=== PATIENT | male | born 1955 | race Caucasian/White ===

== ENCOUNTER 2018-09-12 04:53 | Inpatient (IN) | payer OTHER, MEDICARE ==
[2018-09-12] VITALS (9 sets, daily range): BP systolic 121–162; BP diastolic 64–95
[~2018-09-12] VITALS: Ht 165.1 cm; Wt 129.5 kg
--- NOTE | ~2018-09-12 | PR ---
[place], [place] PROGRESS NOTE NAME: ISSA OJEDA UNIT #: [id number] ROOM: 503 DOCTOR: CAIT TANG BIRTHDATE: [birth year] DOS: 09/13/2018 SUBJECTIVE: The patient was noted comfortable at this time, resting in bed with complaints of leg swelling; however, the patient states he is breathing and feeling overall better. OBJECTIVE: VITAL SIGNS: Normal temperature, respiratory rate 18, heart rate 98, blood pressure 155/87, pulse oxygen saturation on room air is 90%. HEENT: Shows head was atraumatic. Eyes nonicterus. NECK: Supple. CARDIOVASCULAR: S1, S2 is audible. LUNGS: Crackles and rhonchi are present. Slight wheezing was also present. There is general reduction in breath sounds noted bilaterally. ABDOMEN: Soft, moderate severe obesity. EXTREMITIES: Noted pitting edema to 2+. LABORATORY DATA: CBC this morning 09/13/2018, white blood cell count 12.8, hemoglobin 13.2, platelet count 376. CMP on 09/13/2018, sodium 134, BUN 24, creatinine 1.05, carbon dioxide 30, glucose 260. ASSESSMENT: 1. Chronic dependence on tobacco products, has been admitted for acute exacerbation of chronic obstructive pulmonary disease with acute congestive heart failure. 2. History of chronic heavy nicotine abuse. 3. Morbid obesity with strong suspicion of obstructive sleep apnea disorder. Current body habitus. 4. History of essential hypertension, hyperlipidemia, allergic rhinitis, others. PLAN OF TREATMENT: Solu-Medrol switched from 40 mg b.i.d. to daily. Continue current medical management. Other supportive therapy, plan of management care and treatment. Usual medical management. CAIT TANG DO [place], [place] PROGRESS NOTE NAME: ISSA OJEDA UNIT #: [id number] ROOM: 503 DOCTOR: CAIT TANG BIRTHDATE: [birth year] LESLIE MELENDEZ MD CM:PNTRANS [phone] [facility] 09/13/18 1414 interface
--- NOTE | ~2018-09-12 | PR ---
[place], [place] PROGRESS NOTE NAME: ISSA OJEDA [facility] #: [id number] UNIT #: [id number] ROOM: 503 DOCTOR: NORA ADAME MD,LESLIE BIRTHDATE: [birth year] DOS: 09/13/2018 PULMONARY ADDENDUM NOTE The patient lives independently, seen and examined, ilsq-gr-[id number] encounter, history was confirmed. Physical examination was performed. Labs were reviewed. The note done by the medical staff assistant, it was approved. The patient was sitting this morning on the chair, reported reduction in symptoms of shortness of breath, coughing, or wheezing. Denies symptoms of chest pain. There was no sputum expectoration or symptoms of fever, chills or hemoptysis. The edema of the lower extremity, still remains persistent. OBJECTIVE: VITAL SIGNS: Normal temperature, respiratory rate 18, heart rate 98, blood pressure 155/87. Pulse oxygen saturation recorded on room air 93% saturation. HEENT: Head was atraumatic. Eyes nonicterus. NECK: Supple and obese. CARDIOVASCULAR: S1, S2 audible. LUNGS: General reduction in breath sounds bilaterally, decreased air entry. ABDOMEN: Soft, nontender, bowel sounds present. EXTREMITIES: The patient was still noted with edema, which is at least 2+ at this time with chronic changes, some rash. No open areas. MUSCULOSKELETAL: Without acute deformities. CENTRAL NERVOUS SYSTEM: The patient's cranial nerves 2-12 intact. No focal deficits. SKIN: No other lesions or rash except reported on this lower extremities. REVIEW OF SYSTEMS: The patient denies symptoms of abdominal pain, nausea, vomiting, diarrhea, abdominal pain, hematemesis, melena, or hematuria. Denies symptoms of headache or diplopia. Denies any symptoms of nausea or vomiting. The remaining systems were reviewed. They were noted all negative. Influenza A and B, nasal washing antigens that was completed yesterday was negative. Ultrasound of bilateral lower extremity was done yesterday does not show any dense of deep venous thrombosis. Echocardiogram patient shows 55-60% ejection fraction without significant valvular abnormality. Right ventricle function reported as normal by the Cardiology Services as well. CBC this morning, WBC count 12.0, hemoglobin 13.2, hematocrit 41.7 with a platelet count of normal 376,000. CMP this morning, normal BUN and creatinine. Glucose was elevated at 260. IMPRESSION: 1. The patient has been currently treated in this hospital for acute exacerbation of COPD, acute tracheobronchitis with a watermelon inspector heavy nicotine dependence. 2. Edema of lower extremity, congestive heart failure, possibility of diastolic dysfunction. 3. Chronic obesity. 4. Strong suspicion of obstructive sleep apnea disorder. 5. History of essential hypertension, hyperlipidemia and others. [place], [place] PROGRESS NOTE NAME: ISSA OJEDA UNIT #: [id number] ROOM: [facility] DOCTOR: NORA ADAME MD,LESLIE BIRTHDATE: [birth year] PLAN OF MANAGEMENT: Decrease the Solu-Medrol dose 40 mg daily, close monitor respiratory symptom. Continue bronchodilators and oxygen supplementation. Other supportive therapy, plan of management and care. Continue DVT prophylaxis. Diuretic therapy to help improve the edema of lower extremity. No changes in the antibiotics. Further change in treatment will be ordered based on the progression of the illness. LESLIE MELENDEZ MD CM:PNTRANS [phone] LESLIE ADAME MD 09/13/18 2345 interface
--- NOTE | ~2018-09-12 | PR ---
[place], [place] PROGRESS NOTE [id number] UN[facility] #: [id number] ROOM: 503 DOCTOR: LESLIE CRUZ MD BIRTHDATE: [birth year] DOS: 09/15/2018 SUBJECTIVE: The patient has been seen and examined, [id number]-di-[id number] encounter, history was confirmed. Physical examination performed. Labs reviewed. The assessment and management of the patient today visit were personally completed. The note done by the medical billing associate, was approved. The patient has been sitting on the chair this morning of assessment. Continued to show reduction in symptoms of shortness of breath. The coughing was also resolving. There were no symptoms of chest pain, edema of the lower extremities was noted unchanged. He was continued on intravenous diuretic therapy. PHYSICAL EXAMINATION: VITAL SIGNS: For the patient which has been recorded shows a normal temperature, respiratory rate of 20, heart rate of 88, blood pressure 134/68. Pulse oxygen saturation on 3 liters cannula was recorded as 93% saturation. HEAD, EYES, EARS, NOSE, AND THROAT: Examination shows head was atraumatic. Eyes nonicterus. NECK: Supple. CARDIOVASCULAR SYSTEM: S1, S2 is audible. LUNGS: There was no wheezing or crackles. ABDOMEN: Soft, nontender. EXTREMITIES: Still shows edema. LABORATORY DATA: CMP that was done on 09/15/2018, BUN 31, creatinine was normal, glucose 273. CBC that was done on 09/15/2018, WBC 11.9, hemoglobin 12.9. IMPRESSION: Resolving acute congestive heart failure as well as improvement in acute COPD exacerbation was also noted with acute respiratory failure. PLAN OF MANAGEMENT: No changes in the plan of management at the present time. Continuation of current therapy without any changes. Supportive therapy and plan of management, care plan and treatments. [place], [place] PROGRESS NOTE NAME: ISSA OJEDA UNIT #: [id number] ROOM: 503 DOCTOR: LESLIE CRUZ MD BIRTHDATE: [birth year] LESLIE MELENDEZ MD CM:PNTRANS [id number] LESLIE ADAME MD 09/23/18 1027 interface
--- NOTE | ~2018-09-12 | PR ---
[place], [place] PROGRESS NOTE NAME: ISSA OJEDA UNIT #: [id number] ROOM: 503 DOCTOR: CAIT TANG BIRTHDATE: [birth year] DOS: 09/14/2018 PULMONARY PROGRESS NOTE SUBJECTIVE: The patient was noted comfortable at this time, sitting in his chair. The patient states he is breathing well with decreased shortness of breath, coughing and wheezing and at this time feels like he is ready to go home. The patient denies symptoms of chest pain. There is still slight swelling or edema of the lower extremity. OBJECTIVE: VITAL SIGNS: Normal temperature, respiration rate 20, pulse 79, blood pressure 129/80, pulse oxygen saturation on room air is 93%. HEENT: Shows head was atraumatic. Eyes nonicterus. NECK: Supple and obese. CARDIOVASCULAR: S1, S2 audible. LUNGS: General reduction of breath sounds bilaterally. Decreased wheezing heard. ABDOMEN: Soft, nontender. Bowel sounds present. EXTREMITIES: The patient still noted with edema, persistent 1-2+. SKIN: No other lesions or rash reported. IMPRESSION: 1. Chronic dependence on tobacco products, admitted for acute exacerbation of chronic obstructive pulmonary disease with acute congestive heart failure. 2. History of chronic heavy nicotine abuse. PLAN OF TREATMENT: The patient is okay to discharge from a pulmonary standpoint. We will check the patient for obstructive sleep apnea outpatient. The patient can be discharged on steroid taper and antibiotics of the hospitalist choosing. CAIT TANG DO [place], [place] PROGRESS NOTE NAME: ISSA OJEDA UNIT #: [id number] ROOM: 503 DOCTOR: CAIT TANG BIRTHDATE: [birth year] LESLIE MELENDEZ MD CM:PNTRANS [id number] CAIT TANG 09/14/18 1517 interface
--- NOTE | ~2018-09-12 | PR ---
[place], [place] PROGRESS NOTE NAME: ISSA OJEDA UNIT #: [id number] ROOM: 503 DOCTOR: CAIT TANG BIRTHDATE: [birth year] DOS: 09/15/2018 PULMONARY PROGRESS NOTE SUBJECTIVE: The patient was noted sitting comfortably in his chair. The patient had no complaints at that time. States he is breathing well and has had improvement in his respiratory symptoms, shortness of breath and edema of his lower extremities was also resolving. PHYSICAL EXAMINATION: VITAL SIGNS: Normal temperature, respiratory rate 22, heart rate 100, blood pressure 122/69, pulse oxygen saturation on 3 liters nasal cannula 93% saturation. HEENT: Head is atraumatic. Eyes, nonicterus. NECK: Supple. CARDIOVASCULAR: S1, S2 is audible. LUNGS: Noted with [id number]-vqsczscl decreased breath sounds throughout. Slight to minimal crackles heard. No wheezing. ABDOMEN: Soft and obese. EXTREMITIES: Shows resolving edema. ASSESSMENT: The patient noted with resolving acute exacerbation of chronic obstructive pulmonary disease and improving acute congestive heart failure, possibly diastolic dysfunction, history of chronic nicotine dependence. PLAN OF TREATMENT: From a pulmonary standpoint, the patient is able to be discharged with a tapering prednisone and antibiotics as well, bronchodilators and has been counseled about tobacco cessation. Outpatient assessment for sleep apnea will be established by the patient after his discharge. CAIT TANG DO [place], [place] PROGRESS NOTE NAME: ISSA OJEDA UNIT #: [id number] ROOM: 503 DOCTOR: CAIT TANG BIRTHDATE: [birth year] LESLIE MELENDEZ MD CM:PNTRANS [phone] CAIT TANG 09/15/18 1119 interface
--- NOTE | ~2018-09-12 | CON ---
[place], [place] REPORT OF CONSULTATION NAME: ISSA OJEDA [facility] #: [id number] UNIT #: [id number] ROOM: 503 DOCTOR: LESLIE CRUZ MD BIRTHDATE: [birth year] DOS: 09/12/2018 PULMONARY CONSULTATION, EVALUATION AND MANAGEMENT CONSULTATION REQUESTED BY: Hospitalist service. REASON FOR CONSULTATION: For assessment of COPD. HISTORY OF PRESENT ILLNESS: This is a 63-year-old white male with history of long-term heavy tobacco use, smokes up to 3 packs of cigarettes per day. The patient presented to the hospital on 09/12/2018 in the morning. The patient reported symptoms of having increased shortness of breath associated with symptoms of coughing and sputum expectoration for the past 3-4 weeks. The symptoms have been noted progressively worsening and not resolving. Shortness of breath was noted with significant progression. He was also noted with symptoms of chest tightness and wheezing as well. The patient has been known with past history of COPD and smoking cigarettes heavily. He denies any symptoms of hemoptysis or angina pain. He was also reporting symptoms of progressive edema of the lower extremities as well in the home settings. REVIEW OF SYSTEMS: CONSTITUTIONAL SYMPTOMS: Fatigue and tiredness reported. No fever or chills. EYES: Denies any burning, redness, or tenderness. EARS, NOSE, THROAT SYMPTOMS: Denies sore throat, hoarseness, otalgia, postnasal drainage, or epistaxis. CARDIOVASCULAR SYSTEM: Denies palpitation or anginal pain. Noted progressive edema of the lower extremities with some rash. GASTROINTESTINAL SYMPTOMS: Denies dysphagia, nausea, vomiting, diarrhea, abdominal pain, hematemesis, melena, or hematochezia. Denies any abnormal weight loss. Denies any symptoms of dysphagia. History of chronic severe obesity, known. GENITOURINARY SYMPTOMS: No dysuria, suprapubic pain, hematuria or flank pain. MUSCULOSKELETAL SYMPTOMS: No acute joint pain, redness, or tenderness. SKIN: Denies any lesions, rashes except some redness of the lower extremities. CENTRAL NERVOUS SYSTEM: No dizziness, headache, diplopia, or syncopal episode. Remaining systems were reviewed. They were noted all negative. PAST MEDICAL HISTORY: 1. The patient known with history of COPD. 2. Chronic dependency on the tobacco products. 3. Chronic moderate severe obesity. 4. Type 2 diabetes mellitus. 5. Hyperlipidemia. 6. Essential hypertension. 7. Vitamin D deficiency. SOCIAL HISTORY: The patient is and lives at home, noted tobacco use since teenager, 3 packs of cigarettes per day, stating that he buys cheaper brand of cigarettes to smoke. Denies history of alcohol use or any illicit drug [place], [place] REPORT OF CONSULTATION NAME: ISSA OJEDA UNIT #: [id number] ROOM: [facility] DOCTOR: LESLIE CRUZ MD BIRTHDATE: [birth year] use. He does have 2 children. 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 FAMILY HISTORY: Unknown. HOME MEDICATIONS: Listed as use of Ventolin HFA, atorvastatin, Coreg, vitamin D, vitamin B12, Zetia, Advair, gemfibrozil, ibuprofen, loratadine, metformin, omeprazole, and Incruse Ellipta. DRUG ALLERGIES: REPORTED ALLERGY TO THE NARCOTICS. THE PATIENT DOES HAVE HISTORY OF NARCOTIC DEPENDENCE PREVIOUSLY. PHYSICAL EXAMINATION: GENERAL: This is a 63-year-old white male, currently sitting on side of the bed without any acute distress. His is also present in the room with the patient assisted with the history. Height of 5 feet 5 inches, weight of 285 pounds, BMI 47.4 consistent with morbid obesity. VITAL SIGNS: Normal temperature, respiratory rate ranged between 17-22, heart rate 92-101, blood pressure 132/78-162/80. Pulse oxygen saturation on 2 liters nasal cannula 92% saturation on room air noted 92% on admission as well. Intake and output so far has not been documented. HEENT: Head was atraumatic. Eyes nonicterus. NECK: Supple. CARDIOVASCULAR: S1, S2 audible. LUNGS: General reduction in the breath sounds was noted bilaterally. Crackles were noted diffusely in the lungs. Expiratory wheezing was present. ABDOMEN: Noted moderate severe obesity. Bowel sounds present, nontender. EXTREMITIES: Noted 2-3+ pitting edema in lower extremity, some redness of the lower extremity. There were no open areas. CENTRAL NERVOUS SYSTEM: Cranial nerves 2-12 intact. MUSCULOSKELETAL: Without any gross deformities. LABORATORY DATA: CBC this morning; WBC count 12.2, hemoglobin 13.1, platelet count was normal. The lactic acid noted 1.0 this morning of assessment. PT/PTT normal this morning. CMP, normal BUN and creatinine. Influenza A and B, nasal washing antigens were noted as negative. Chest x-ray that was done one view in the Emergency reviewed from the PACS. Images with increased pulmonary venous congestion marking were noted on the current chest x-ray. CT scan of the chest, which was done without contrast was reviewed, shows small plate-like atelectasis in the lower lung without any evidence of pulmonary edema, congestive heart failure findings and/or abnormal lymphadenopathy. IMPRESSION: 1. Chronic dependence on the tobacco products who has been admitted to the hospital at this time with findings of acute exacerbation of chronic obstructive pulmonary disease with acute congestive heart failure, possibility of cor pulmonale would be considered. 2. History of chronic heavy nicotine abuse as well. 3. The patient with morbid obesity with strong suspicion of obstructive sleep [place], [place] REPORT OF CONSULTATION NAME: ISSA OJEDA UNIT #: [id number] ROOM: [facility] DOCTOR: LESLIE CRUZ MD BIRTHDATE: [birth year] apnea disorder, current body habitus. 4. History of essential hypertension, hyperlipidemia, allergic rhinitis and others. PLAN OF TREATMENT: The patient has been started on Solu-Medrol 40 mg b.i.d. that will be continued. Diuretic therapy for the patient to be done. Cardiology assessment or minimum of echocardiogram assessment to assess the left and the right ventricular functions. Tobacco cessation and counseling was done at the bedside. Continue current antibiotic for community-acquired bronchitis. Usual care. Further treatment changes will be recommended based on progression of the illness if the edema remains persistent in spite of good diuretics. Consider obtaining ultrasound of lower extremity to exclude any underlying deep venous thrombosis. Supportive therapy, other plan of management and care plan. Oxygen supplementation in case of hypoxia to maintain pulse oxygen saturation 92% or greater. Usual care, other supportive plan of therapy and care plan and treatment. Other treatment plan of management to be made for this patient based on the progression of the illness. Thank you for allowing me to participate in the care of this patient. LESLIE MELENDEZ MD CM:CONSTR:REPORT OF CONSULTATION 1443 09/13/18 0256 interface
--- NOTE | ~2018-09-12 | EKG ---
[place], [place] ELECTROCARDIOGRAM REPORT NAME: ISSA OJEDA UNIT #: [id number] ROOM: 503 DOCTOR: NEGIN DRAFT REPORT BIRTHDATE: [birth year] [facility] Test Date: 2018-09-12 Test Time: 05:23:04 Pat Name: ISSA OJEDA Department: Room: 503 Gender: M Composite Bond Technician: : 1955 Requested By: VIRGINIA FRANKEL Order Number: [id number] Reading MD: Chencho Vanegas MD Measurements Intervals [place] Rate: 91 P: 42 WV: 184 QRS: 41 QRSD: 87 T: 44 QT: 360 QTc: 443 Interpretive Statements Sinus rhythm Low voltage, precordial leads Borderline T abnormalities, anterior leads Electronically Signed On 09-13-2018 11:10:03 PST by Chencho Vanegas MD CM:EKGRPT:ELECTROCARDIOGRAM REPORT 0523 1110 VIRGINIA FITZGERALD DRAFT REPORT VIRGINIA FRANKEL DO
--- NOTE | ~2018-09-12 | PR ---
[place], [place] PROGRESS NOTE [id number] #: [id number] ROOM: 503 DOCTOR: LESLIE CRUZ MD BIRTHDATE: [birth year] DOS: 09/14/2018 PULMONARY PROGRESS NOTE SUBJECTIVE: The patient was independently seen and examined with qzrz-[id number]-gqcb encounter, history was confirmed. Physical examination was performed. Laboratory reviewed. Assessment and management of today's visit personally completed. Note done by the medical equipment repairer, was approved. The patient continued to show reduction and improvement in the respiratory symptoms, shortness of breath, edema of lower extremities was also resolving. The patient has been getting intravenous Lasix as well. Denies symptoms of chest pain, fever or chills. Oxygen supplementation was continued. PHYSICAL EXAMINATION: VITAL SIGNS: Normal temperature, respiratory rate 20, heart rate 79, pulse 129/80. The pulse oxygen saturation of the patient recorded as 98% saturation on 3 L nasal cannula. HEENT: Examination shows head was atraumatic. Eyes nonicterus. NECK: Supple. CARDIOVASCULAR: S1, S2 is audible. LUNGS: Noted with mild to moderate decreased breath sounds without wheeze or crackles today. ABDOMEN: Soft and obese. EXTREMITIES: Shows resolving edema; however, the resolution noted incomplete. IMPRESSION: The patient with improving acute congestive heart failure, possibly diastolic dysfunction, resolving acute exacerbation of chronic obstructive pulmonary disease, history of chronic nicotine dependence. PLAN OF TREATMENT: From the pulmonary standpoint discharge planning could be started for the patient upon discharge tapering prednisone, antibiotics as well. Bronchodilators, counseling about tobacco cessation. Outpatient assessment for sleep apnea, COPD, needs to be established by the patient post-discharge. [place], [place] PROGRESS NOTE NAME: ISSA OJEDA UNIT #: [id number] ROOM: 503 DOCTOR: LESLIE CRUZ MD BIRTHDATE: [birth year] LESLIE MELENDEZ MD CM:PNTRANS 20 [phone] LESLIE ADAME MD 09/14/182300 interface
[~2018-09-12 04:53] MED LIST: ATORVASTATIN CA20 MG PO; B12,B-12,B 12500 MC1 PO; CIPRO500 MG PO; CIPROFLOXACIN500 MG PO; COREG3.125 MG PO; FEROSUL325 MG PO; FLAGYL500 MG PO; GLUCOPHAGE500 M1 PO; LEVAQUIN500 M2 PO; LIPITOR80 MG PO; LISINOPRIL2.5 MG; LISINOPRIL2.5 MG PO; LOPID600 M1 PO; METFORMIN500 MG PO; MOTRIN 600 MG E4 TAB PO; MOTRIN800 MG PO; NICODERM14 MG/24 H TD; NOVOLIN 70/30 701 EA SC; NOVOLIN 70100 UNIT/1 SQ; PHENERGAN25 M1 PO; SYMBICORT1 AE1 INH; ULTRAM50 MG PO; VENTOLIN H0.09 MG/AC INH; VICODIN ES 7501 TAB PO; ZETIA10 MG PO
[2018-09-12 05:29] LABS: BASO # 0.1 10*3/uL (0.0-0.1); BASO % 0.7 % (0.0-1.0); EOS # 0.2 10*3/uL (0.0-0.4); EOS % 1.2 % (1.0-4.0); HEMATOCRIT 40.3 % (42.0-52.0); HEMOGLOBIN 13.1 g/dl (14.0-18.0); LYMPH # 1.5 10*3/uL (1.3-4.4); LYMPH % 11.9 % (27.0-41.0); MEAN CORPUSCULAR HGB 32.8 pg (27.0-31.0); MEAN CORPUSCULAR HGB CONC 32.5 g/dl (33.0-37.0); MEAN PLATELET VOLUME 9.9 fl (9.6-12.3); MONO # 0.7 10*3/uL (0.1-1.0); MONO % 5.3 % (3.0-9.0); NEUT # 9.8 10*3/uL (2.3-7.9); NEUT % 80.3 % (47.0-73.0); PLATELET COUNT AUTOMATED 330 10*3/uL (130-400); RED BLOOD COUNT 3.99 10*6/uL (4.50-5.90); RED CELL DISTRI WIDTH 14.3 % (0-14.5); WHITE BLOOD COUNT 12.2 10*3/uL (4.8-10.8)
[2018-09-12 05:37] LABS: ACT PARTIAL THROMBO TIME 27.6 SECONDS (20.8-31.5); INTERNATIONAL NORM RATIO 0.9 (2.0-3.5)
[2018-09-12 05:46] LABS: ALBUMIN 4.1 gm/dl (3.1-4.5); ALKALINE PHOSPHATASE 132 U/L (45-117); BUN 18 mg/dl (7-24); CHLORIDE 104 mmol/L (98-107); CREATININE 0.95 mg/dL (0.70-1.30); POTASSIUM 4.1 mmol/L (3.5-5.1); SGOT/AST 35 IU/L (3-35); SGPT/ALT 29 U/L (12-78); SODIUM 140 mmol/L (136-145)
[2018-09-12 05:48] LABS: TROPONIN I < 0.015 ng/ml (<0.045)
[2018-09-12] MEDS ORDERED: CLEARATADINE10 MG PO (05:53)
[2018-09-12] MEDS ORDERED: OMEPRAZOLE40 MG PO (05:53)
[2018-09-12] MEDS ORDERED: ADV 500/50 INH (05:54)
[2018-09-12] MEDS ORDERED: VITAMIN D31000 UNI1 PO (05:55)
[2018-09-12] MEDS ORDERED: INCRUSE ELLI62.5 MCG INH (05:55)
[2018-09-12] MEDS ORDERED: B12,B-12,B 12500 MC1 PO (05:56)
[2018-09-12] MEDS ORDERED: CARVEDILOL3.125 MG PO (05:56)
[2018-09-12] MEDS ORDERED: NOVOLIN 70100 UNIT/1 SQ (05:58)
[2018-09-13] VITALS: BP 155/87
[2018-09-13 06:42] LABS: BASO % 0.2 % (0.0-1.0); HEMATOCRIT 41.7 % (42.0-52.0); HEMOGLOBIN 13.2 g/dl (14.0-18.0); LYMPH % 7.8 % (27.0-41.0); MEAN CELL VOLUME 102.2 fl (80.0-94.0); MEAN CORPUSCULAR HGB 32.4 pg (27.0-31.0); MEAN CORPUSCULAR HGB CONC 31.7 g/dl (33.0-37.0); MEAN PLATELET VOLUME 10.3 fl (9.6-12.3); MONO # 0.4 10*3/uL (0.1-1.0); MONO % 3.4 % (3.0-9.0); NEUT # 11.3 10*3/uL (2.3-7.9); NEUT % 88.2 % (47.0-73.0); PLATELET COUNT AUTOMATED 376 10*3/uL (130-400); RED BLOOD COUNT 4.08 10*6/uL (4.50-5.90); RED CELL DISTRI WIDTH 14.2 % (0-14.5); WHITE BLOOD COUNT 12.8 10*3/uL (4.8-10.8)
[2018-09-13 06:56] LABS: ALBUMIN 4.4 gm/dl (3.1-4.5); BUN 24 mg/dl (7-24); CHLORIDE 95 mmol/L (98-107); CHOLESTEROL 98 mg/dL (<200); CREATININE 1.05 mg/dL (0.70-1.30); PHOSPHOROUS 3.5 mg/dL (2.5-4.9); POTASSIUM 4.2 mmol/L (3.5-5.1); SGOT/AST 33 IU/L (3-35); SGPT/ALT 32 U/L (12-78); SODIUM 134 mmol/L (136-145); TOTAL PROTEIN 8.4 gm/dL (6.4-8.2); TRIGLYCERIDES 125 mg/dl (<150); VLDL CHOLESTEROL 25 mg/dL (6-40)
[2018-09-13 07:02] LABS: ALKALINE PHOSPHATASE 133 U/L (45-117); FREE T4 0.75 ng/dl (0.76-1.46); HDL CHOLESTEROL 45 mg/dl (40-60); LDL CHOLESTEROL 28 mg/dL (9-159)
[2018-09-13 08:41] LABS: VITAMIN D, 25-HYDROXY 18.7 ng/mL (30-100)
[2018-09-13 12:00] VITALS: BP 121/56
[2018-09-13 16:00] VITALS: BP 136/68
[2018-09-13 20:00] VITALS: BP 111/65
[2018-09-14] VITALS: BP 134/73
[2018-09-14 06:17] LABS: BASO % 0.3 % (0.0-1.0); EOS % 0.3 % (1.0-4.0); HEMATOCRIT 40.2 % (42.0-52.0); LYMPH # 2.3 10*3/uL (1.3-4.4); LYMPH % 20.6 % (27.0-41.0); MEAN CORPUSCULAR HGB CONC 32.3 g/dl (33.0-37.0); MEAN PLATELET VOLUME 10.1 fl (9.6-12.3); MONO # 0.7 10*3/uL (0.1-1.0); MONO % 6.3 % (3.0-9.0); NEUT # 7.9 10*3/uL (2.3-7.9); NEUT % 72.1 % (47.0-73.0); PLATELET COUNT AUTOMATED 311 10*3/uL (130-400); RED BLOOD COUNT 3.94 10*6/uL (4.50-5.90); RED CELL DISTRI WIDTH 14.4 % (0-14.5)
[2018-09-14 06:35] LABS: ALKALINE PHOSPHATASE 117 U/L (45-117); CHLORIDE 96 mmol/L (98-107); CREATININE 1.01 mg/dL (0.70-1.30); POTASSIUM 4.1 mmol/L (3.5-5.1); SGOT/AST 41 IU/L (3-35); SGPT/ALT 32 U/L (12-78); SODIUM 135 mmol/L (136-145); TOTAL PROTEIN 7.8 gm/dL (6.4-8.2)
[2018-09-14 07:21] LABS: BUN 35 mg/dl (7-24)
[2018-09-14 08:00] VITALS: BP 129/80
[2018-09-14 12:00] VITALS: BP 125/72
[2018-09-14 16:00] VITALS: BP 120/70
[2018-09-14 20:00] VITALS: BP 124/59
[2018-09-15] VITALS: BP 122/69
[2018-09-15 06:32] LABS: BASO % 0.2 % (0.0-1.0); EOS # 0.1 10*3/uL (0.0-0.4); EOS % 0.4 % (1.0-4.0); HEMATOCRIT 39.3 % (42.0-52.0); HEMOGLOBIN 12.9 g/dl (14.0-18.0); LYMPH # 2.1 10*3/uL (1.3-4.4); LYMPH % 17.9 % (27.0-41.0); MEAN CELL VOLUME 99.7 fl (80.0-94.0); MEAN CORPUSCULAR HGB 32.7 pg (27.0-31.0); MEAN CORPUSCULAR HGB CONC 32.8 g/dl (33.0-37.0); MEAN PLATELET VOLUME 10.6 fl (9.6-12.3); MONO # 0.8 10*3/uL (0.1-1.0); MONO % 6.7 % (3.0-9.0); NEUT # 8.8 10*3/uL (2.3-7.9); NEUT % 74.4 % (47.0-73.0); PLATELET COUNT AUTOMATED 323 10*3/uL (130-400); RED BLOOD COUNT 3.94 10*6/uL (4.50-5.90); RED CELL DISTRI WIDTH 14.1 % (0-14.5); WHITE BLOOD COUNT 11.9 10*3/uL (4.8-10.8)
[2018-09-15 06:40] LABS: ALBUMIN 3.9 gm/dl (3.1-4.5); ALKALINE PHOSPHATASE 121 U/L (45-117); BUN 31 mg/dl (7-24); CHLORIDE 94 mmol/L (98-107); CREATININE 0.99 mg/dL (0.70-1.30); POTASSIUM 3.8 mmol/L (3.5-5.1); SGOT/AST 32 IU/L (3-35); SGPT/ALT 35 U/L (12-78); SODIUM 133 mmol/L (136-145); TOTAL PROTEIN 7.5 gm/dL (6.4-8.2)
[2018-09-15] MEDS ORDERED: LASIX40 MG PO (10:43)
[2018-09-15] MEDS ORDERED: NICODERM T (10:43)
[2018-09-15] MEDS ORDERED: PREDNISONE10 MG PO (10:43)
[2018-09-15] MEDS ORDERED: AVPAK AZITHROM250 M1 PO (10:43)
[2018-09-15] MEDS ORDERED: K-TAB10 MEQ PO (10:43)
[2018-09-15 12:00] VITALS: BP 134/68
== END 2018-09-15 13:30 | disposition home or self-care (01) | DRG 871 ==
LOC: ED 04:53 → EDHOLD 05:55 → 5E 05:55
PROVIDERS: Family Medicine; Internal Medicine; Student in an Organized Health Care Education/Training Program
DX: A41.9 Sepsis, unspecified organism (principal); G93.41 Metabolic encephalopathy; J18.9 Pneumonia, unspecified organism; J96.00 Acute respiratory failure, unspecified whether with hypoxia or hypercapnia; J44.0 Chronic obstructive pulmonary disease with (acute) lower respiratory infection; J44.1 Chronic obstructive pulmonary disease with (acute) exacerbation; Z68.42 Body mass index [BMI] 45.0-49.9, adult; I11.0 Hypertensive heart disease with heart failure; I50.9 Heart failure, unspecified; D53.9 Nutritional anemia, unspecified; E78.5 Hyperlipidemia, unspecified; I08.1 Rheumatic disorders of both mitral and tricuspid valves; E55.9 Vitamin D deficiency, unspecified; G47.33 Obstructive sleep apnea (adult) (pediatric); J20.9 Acute bronchitis, unspecified; F17.210 Nicotine dependence, cigarettes, uncomplicated; R60.9 Edema, unspecified; E11.649 Type 2 diabetes mellitus with hypoglycemia without coma; E66.01 Morbid (severe) obesity due to excess calories; Z71.6 Tobacco abuse counseling; Z79.4 Long term (current) use of insulin; Z88.5 Allergy status to narcotic agent; Z89.422 Acquired absence of other left toe(s); Z79.899 Other long term (current) drug therapy

== ENCOUNTER 2018-10-13 12:07 | Inpatient (IN) | payer OTHER, MEDICARE ==
[2018-10-13] VITALS (7 sets, daily range): BP systolic 135–140; BP diastolic 64–80
[~2018-10-13] VITALS: Ht 165.1 cm; Wt 127.5 kg
[~2018-10-13 12:07] MED LIST changes: +ADV 500/50 INH; +AVPAK AZITHROM250 M1 PO; +CARVEDILOL3.125 MG PO; +CLEARATADINE10 MG PO; +INCRUSE ELLI62.5 MCG INH; +K-TAB10 MEQ PO; +LASIX40 MG PO; +NICODERM T; +OMEPRAZOLE40 MG PO; +PREDNISONE10 MG PO; +VITAMIN D31000 UNI1 PO
[2018-10-13 12:43] LABS: BASO # 0.1 10*3/uL (0.0-0.1); BASO % 0.5 % (0.0-1.0); EOS # 0.1 10*3/uL (0.0-0.4); EOS % 1.2 % (1.0-4.0); HEMATOCRIT 37.9 % (42.0-52.0); HEMOGLOBIN 12.4 g/dl (14.0-18.0); LYMPH # 1.4 10*3/uL (1.3-4.4); LYMPH % 14.2 % (27.0-41.0); MEAN CELL VOLUME 101.6 fl (80.0-94.0); MEAN CORPUSCULAR HGB 33.2 pg (27.0-31.0); MEAN CORPUSCULAR HGB CONC 32.7 g/dl (33.0-37.0); MEAN PLATELET VOLUME 9.7 fl (9.6-12.3); MONO # 0.6 10*3/uL (0.1-1.0); MONO % 5.6 % (3.0-9.0); NEUT # 7.8 10*3/uL (2.3-7.9); NEUT % 78.2 % (47.0-73.0); PLATELET COUNT AUTOMATED 353 10*3/uL (130-400); RED BLOOD COUNT 3.73 10*6/uL (4.50-5.90); RED CELL DISTRI WIDTH 14.6 % (0-14.5)
[2018-10-13 12:51] LABS: INTERNATIONAL NORM RATIO 0.9 (2.0-3.5)
[2018-10-13 12:58] LABS: ALBUMIN 3.5 gm/dl (3.1-4.5); ALKALINE PHOSPHATASE 127 U/L (45-117); BUN 16 mg/dl (7-24); CHLORIDE 103 mmol/L (98-107); CREATININE 0.91 mg/dL (0.70-1.30); POTASSIUM 4.2 mmol/L (3.5-5.1); SGOT/AST 27 IU/L (3-35); SGPT/ALT 26 U/L (12-78); SODIUM 138 mmol/L (136-145); TOTAL PROTEIN 7.4 gm/dL (6.4-8.2)
[2018-10-13 14:41] LABS: BILIRUBIN NEGATIVE (NEGATIVE); BLOOD NEGATIVE (NEGATIVE); CLARITY CLEAR (CLEAR); COLOR YELLOW (YELLOW); GLUCOSE NEGATIVE (NEGATIVE); KETONE NEGATIVE (NEGATIVE); LEUKO ESTERASE NEGATIVE (NEGATIVE); NITRITE NEGATIVE (NEGATIVE); UROBILINOGEN 0.2 E.U./dl (0.2-1.0)
[2018-10-13 14:50] LABS: URINE AMPHETAMINES < 1000 (1000ng/ml); URINE BARBITURATES < 200 (200ng/ml); URINE BENZODIAZEPINES < 200 (200ng/ml); URINE CANNABINOIDS (THC) < 50 (50ng/ml); URINE COCAINE < 300 (300ng/ml); URINE METHADONE < 300 (300ng/ml); URINE OPIATES < 300 (300ng/ml)
[2018-10-13 14:51] LABS: URINE PHENCYCLIDINE < 25 (25ng/ml)
--- NOTE | 2018-10-13 15:45 | NUR ---
PT RETURNS TO ED FROM WAITING AREA WITH STATES I WILL BE ADMITTED BUT FOR ONLY 1 NIGHT. MELLO HOUSING ASSISTANT NOTIFIED.
[2018-10-13 17:27] LABS: ABG BASE EXCESS 0.7 mmol/L (-2.0-2.0); ABG O2 SATURATION 92.4 % (95-97); ARTERIAL BLOOD GAS PCO2 46.2 mmHg (35-45); ARTERIAL BLOOD GAS PH 7.366 (7.35-7.45); ARTERIAL BLOOD GAS PO2 60.5 mmHg (80-90)
--- NOTE | 2018-10-13 17:45 | NUR ---
Time: 1744 A 63 year old MALE admitted to 5E under services of JOSEPH GRAFF DO, Pt. arrived via stretcher from ER. Chief complaint: DYSPNEA, VISUAL HALLUCINATIONS EARLIER TODAY, LOW OXYGEN SATURATION AND MOIST NONPRODUCTIVE COUGH. SARY BLANCHARD
--- NOTE | 2018-10-13 17:50 | NUR ---
MED REC UPDATED/CORRECTED USING INFORMATION FROM PATIENT'S DISCHARGE MEDS LIST FROM 09/15; PATIENT DENIED ANY CHANGES TO THIS LIST.
--- NOTE | 2018-10-13 20:00 | NUR ---
PT RESTING UP IN CHAIR. NO ACUTE DISTRESS NOTED AT THIS TIME. RESPS EASY AND REG. NO COMPLAINTS NOTED CURRENTLY.
--- NOTE | 2018-10-13 20:12 | NUR ---
PT C/O BODY ACHES 04/26. PRN MEDS GIVEN. WILL MONITOR FOR EFFECTIVENESS.
[2018-10-14] VITALS: BP 139/88
[2018-10-14 00:01] VITALS: BP 118/42
--- NOTE | 2018-10-14 05:49 | NUR ---
PT C/O BACK PAIN 03/27. PRN MEDS GIVEN. WILL MONITOR FOR EFFECTIVENESS.
[2018-10-14 07:24] LABS: BASO % 0.1 % (0.0-1.0); HEMATOCRIT 38.9 % (42.0-52.0); HEMOGLOBIN 12.2 g/dl (14.0-18.0); LYMPH # 1.1 10*3/uL (1.3-4.4); LYMPH % 11.2 % (27.0-41.0); MEAN CELL VOLUME 102.4 fl (80.0-94.0); MEAN CORPUSCULAR HGB 32.1 pg (27.0-31.0); MEAN CORPUSCULAR HGB CONC 31.4 g/dl (33.0-37.0); MEAN PLATELET VOLUME 10.2 fl (9.6-12.3); MONO # 0.4 10*3/uL (0.1-1.0); MONO % 4.1 % (3.0-9.0); NEUT # 8.4 10*3/uL (2.3-7.9); NEUT % 84.3 % (47.0-73.0); PLATELET COUNT AUTOMATED 384 10*3/uL (130-400); RED CELL DISTRI WIDTH 14.6 % (0-14.5); WHITE BLOOD COUNT 9.9 10*3/uL (4.8-10.8)
[2018-10-14 07:41] LABS: ALBUMIN 3.6 gm/dl (3.1-4.5); ALKALINE PHOSPHATASE 126 U/L (45-117); BUN 17 mg/dl (7-24); CHLORIDE 102 mmol/L (98-107); CREATININE 0.76 mg/dL (0.70-1.30); POTASSIUM 4.4 mmol/L (3.5-5.1); SGOT/AST 23 IU/L (3-35); SGPT/ALT 27 U/L (12-78); SODIUM 138 mmol/L (136-145); TOTAL PROTEIN 7.7 gm/dL (6.4-8.2)
[2018-10-14 08:00] VITALS: BP 132/60
--- NOTE | 2018-10-14 08:11 | NUR ---
PT REQUESTING NICOTINE PATCH. NONE ON ORDER. NOTIFIED , SAID THANKS.
--- NOTE | 2018-10-14 11:38 | NUR ---
Clearing Distribution Clerk in to talk to patient. Patient states lives at HOME with . There are NO steps in the home. Physician: CT Pharmacy: [facility] Home health services: NONE Patient's level of ADLs: MINIMAL ASSIST Patient has working utilities: YES DME: NONE Follow-up physician's appointment after d/c: WILL BE MADE BY HOSPITALIST NURSE DIRECTOR ON DISCHARGE Does patient want to access PORTAL?: NO Discharge plan PT STATES HE LIVES AT HOME WITH AND PLANS TO RETURN HOME ON DISCAHRGE. PT STATES HE FEELS LIKE HE NEEDS TO HAVE HOME OXYGEN. INSTRUCTED PT TO TALK TO DOCTOR ABOUT IT AND SEE IF HE COULD BE EVALUATED FOR HOME O2. ALSO STATES HE GOT A PERSCRIPTION FOR NEBULIZER YESTERDAY FROM DR FOFANA BUT HAS NOT GOTTEN IT YET. WILL CONTINUE TO FOLLOW. . REG SNYDER
[2018-10-14 12:00] VITALS: BP 126/76
--- NOTE | 2018-10-14 12:16 | NUR ---
BSG 260. SEE MAR FOR COVERAGE.
[2018-10-14 16:00] VITALS: BP 130/67
--- NOTE | 2018-10-14 16:00 | NUR ---
SPOKE WITH DR RESTREPO REGARDING PT NOCTURNAL PULSE OX. PHYSICIAN STATES HE WOULD LIKE PT TO BE ON ROOM AIR WHILE MONITORING PULSE OX IN ORDER TO CHECK FOR HYPOXIA. WILL PASS ON TO PM NURSE.
--- NOTE | 2018-10-14 16:54 | NUR ---
PT C/O BACK PAIN, RATES IT 05/27. NORCO GIVEN AT THIS TIME. WILL MONITOR FOR EFFECTIVENESS. CALL LIGHT IN REACH.
--- NOTE | 2018-10-14 17:54 | NUR ---
NORCO EFFECTIVE PER PT. PT SITTING UP IN CHAIR, IV ATBS INFUSING WITH EASE INTO RIGHT HAND. WILL CONTINUE TO MONITOR. CALL LIGHT IN REACH.
[2018-10-14 20:00] VITALS: BP 115/52
--- NOTE | 2018-10-14 20:08 | NUR ---
PATIENT IS RESTING IN CHAIR WITH EASY AND REGULAR RESPERS ON 3L O2 VIA NASAL CANNULA. NO C/O OR S/S OF DISTRESS NOTED AT THIS TIME. BEDSIDE GLUCOSE 254. CALL LIGHT IS WITHIN REACH.
--- NOTE | 2018-10-14 21:20 | NUR ---
2200 MEDICATIONS GIVEN AT THIS TIME WELL PRN NORCO FOR BACK PAIN. PATIENT TOLERATED WELL, CALL LIGHT IS WITHIN REACH.
--- NOTE | 2018-10-14 22:00 | NUR ---
NOCTURNAL PULSE OX APPLIED. PRN NORCO SEEMS EFFECTIVE, PATIENT IS SLEEPING WITH EASY AND REGULAR RESPERS ON ROOM AIR. CALL LIGHT IS WITHIN REACH.
--- NOTE | 2018-10-14 23:04 | NUR ---
Patient set up on nocturnal pulse oximeter
[2018-10-15] VITALS: BP 127/64
--- NOTE | 2018-10-15 04:05 | NUR ---
PRN NORCO GIVEN FOR PATIENT C/O BACK PAIN. CALL LIGHT IS WITHIN REACH.
[2018-10-15 05:58] LABS: BASO % 0.1 % (0.0-1.0); EOS % 0.1 % (1.0-4.0); HEMATOCRIT 39.7 % (42.0-52.0); HEMOGLOBIN 12.6 g/dl (14.0-18.0); MEAN CELL VOLUME 102.6 fl (80.0-94.0); MEAN CORPUSCULAR HGB 32.6 pg (27.0-31.0); MEAN CORPUSCULAR HGB CONC 31.7 g/dl (33.0-37.0); MONO # 0.3 10*3/uL (0.1-1.0); MONO % 3.7 % (3.0-9.0); NEUT # 6.6 10*3/uL (2.3-7.9); NEUT % 82.6 % (47.0-73.0); PLATELET COUNT AUTOMATED 341 10*3/uL (130-400); RED BLOOD COUNT 3.87 10*6/uL (4.50-5.90); RED CELL DISTRI WIDTH 14.7 % (0-14.5)
[2018-10-15 06:12] LABS: BUN 25 mg/dl (7-24); CHLORIDE 101 mmol/L (98-107); CREATININE 0.96 mg/dL (0.70-1.30); POTASSIUM 4.8 mmol/L (3.5-5.1); SODIUM 137 mmol/L (136-145)
--- NOTE | 2018-10-15 06:22 | NUR ---
0730 MEDICATIONS GIVEN AT THIS TIME, PATIENT TOLERATED WELL. CALL LIGHT IS WITHIN REACH. NO C/O NOTED AT THIS TIME. CALL LIGHT IS WITHIN REACH.
[2018-10-15 08:00] VITALS: BP 134/76
[2018-10-15 12:00] VITALS: BP 144/73
[2018-10-15] MEDS ORDERED: PREDNISONE10 MG PO (15:26)
[2018-10-15] MEDS ORDERED: ZITHROMAX250 MG PO (15:26)
[2018-10-15] MEDS ORDERED: LASIX40 MG PO ×2 (15:26)
--- NOTE | 2018-10-15 15:52 | NUR ---
PULSE OX ON R/A AT REST 91%, PT. AMBULATED IN [place] FOR APPRX. 1 MINUTE ON R/A, PULSE OX DECREASING TO 88%. O2 ON AT 2L, SAT. INCREASING TO 92%. CONTINUED AMBULATION ON 2L, PUSLE OX WAS 93% WITH AMBULATION ON 2L. PT. AMBULATED FOR APPRX. 6 MINUTES WITH SAT OF 93% ON 2L. PT. RETURNED TO ROOM, RECOVERY ON 2L AT REST 96%. O2 REMOVED AND MONITORED, PULSE OX 91 % ON R/A AT REST. B/P PRIOR TO WALK 134/76/ POST 150/72 HEART RATE 77 PRIOR TO WALK AND [address] AT RECOVERY[address] RN AND DR. RESTREPO NOTIFIED. CRISTIANO CALLED FOR O2 AND NEBULLIZER SERVICE.
[2018-10-15 16:00] VITALS: BP 136/63
--- NOTE | 2018-10-15 18:22 | NUR ---
Discharge instructions reviewed with patient/family. Patient receptive and verbalizes understanding. Follow-up care arranged. Written instructions given to patient/family. TIMMY LOYA
== END 2018-10-15 18:22 | disposition home or self-care (01) | DRG 871 ==
LOC: ED 12:07 → EDHOLD 16:09 → 5E 16:09
PROVIDERS: Internal Medicine; Nurse Practitioner Family; Student in an Organized Health Care Education/Training Program; ADMIT Internal Medicine
DX: A41.9 Sepsis, unspecified organism (principal); G93.41 Metabolic encephalopathy; J18.9 Pneumonia, unspecified organism; J44.1 Chronic obstructive pulmonary disease with (acute) exacerbation; J44.0 Chronic obstructive pulmonary disease with (acute) lower respiratory infection; Z68.42 Body mass index [BMI] 45.0-49.9, adult; E53.8 Deficiency of other specified B group vitamins; E66.01 Morbid (severe) obesity due to excess calories; D53.9 Nutritional anemia, unspecified; E13.65 Other specified diabetes mellitus with hyperglycemia; I10 Essential (primary) hypertension; E78.5 Hyperlipidemia, unspecified; E55.9 Vitamin D deficiency, unspecified; Z72.0 Tobacco use; Z71.6 Tobacco abuse counseling; Z88.5 Allergy status to narcotic agent; Z89.422 Acquired absence of other left toe(s); Z79.899 Other long term (current) drug therapy

== ENCOUNTER 2019-11-18 15:35 | Inpatient (IN) | payer OTHER, MEDICARE ==
[~2019-11-18] VITALS: Ht 160 cm; Wt 122.2 kg
[~2019-11-18 15:35] MED LIST changes: +ZITHROMAX250 MG PO
[2019-11-18 15:46] VITALS: BP 129/60
[2019-11-18 16:40] LABS: BASO % 0.2 % (0.0-1.0); EOS # 0.1 10*3/uL (0.0-0.4); EOS % 0.7 % (1.0-4.0); HEMATOCRIT 31.6 % (42.0-52.0); HEMOGLOBIN 9.3 g/dl (14.0-18.0); LYMPH # 1.1 10*3/uL (1.3-4.4); LYMPH % 6.7 % (27.0-41.0); MEAN CELL VOLUME 101.9 fl (80.0-94.0); MEAN CORPUSCULAR HGB CONC 29.4 g/dl (33.0-37.0); MEAN PLATELET VOLUME 9.3 fl (9.6-12.3); MONO # 0.7 10*3/uL (0.1-1.0); MONO % 4.5 % (3.0-9.0); NEUT # 14.3 10*3/uL (2.3-7.9); NEUT % 87.3 % (47.0-73.0); PLATELET COUNT AUTOMATED 413 10*3/uL (130-400); WHITE BLOOD COUNT 16.4 10*3/uL (4.8-10.8)
[2019-11-18 16:50] LABS: ACT PARTIAL THROMBO TIME 32.8 SECONDS (20.0-32.1); INTERNATIONAL NORM RATIO 0.9 (2.0-3.5)
[2019-11-18 16:56] LABS: ALBUMIN 2.3 gm/dl (3.1-4.5); ALKALINE PHOSPHATASE 99 U/L (45-117); BUN 15 mg/dl (7-24); CHLORIDE 95 mmol/L (98-107); CREATININE 0.78 mg/dL (0.70-1.30); LIPASE 88 U/L (73-393); SGOT/AST 24 IU/L (3-35); SGPT/ALT 22 U/L (12-78); SODIUM 136 mmol/L (136-145); TOTAL PROTEIN 7.6 gm/dL (6.4-8.2); TROPONIN I < 0.015 ng/ml (<0.045)
--- NOTE | 2019-11-18 17:46 | NUR ---
RESPIRATORY WAS UNABLE TO OBTAIN BLOOD GASSES PT WAS COMBATIVE JARAD TRUONG IS AWARE AND IS GOING TO ORDER DIFFERENT BLOOD WORK
[2019-11-18 17:55] LABS: VENOUS BLOOD GAS O2 SAT 95.7 % (40-85); VENOUS PH 7.315 (7.32-7.43)
--- NOTE | 2019-11-18 18:15 | NUR ---
THE PATIENT'S IV HAD COME OUT. THIS NURSE CLEANED UP HIS ARM AND CHANGED HIS GOWN AND BLANKETS. DAVID COLEMAN TO START ANOTHER IV
[2019-11-18 18:34] VITALS: BP 135/70
--- NOTE | 2019-11-18 19:11 | NUR ---
CALLED TO TAKE PT TO FLOOR SHE WAS BUSY WITH ANOTHER PT WANTS 20 MINUTES THEN TAKE PT UP
[2019-11-18 19:39] VITALS: BP 136/72
[2019-11-18 19:47] VITALS: BP 150/62
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
[2019-11-18] MEDS ORDERED: CARVEDILOL12.5 MG PO (21:05)
--- NOTE | 2019-11-18 21:17 | NUR ---
MOVED TO 407-2 WITH BELONGINGS AND FAILY AWARE. THIS WAS TO BE CARE FOR PATIENT.
[2019-11-19] VITALS: BP 138/52
--- NOTE | 2019-11-19 | NUR ---
MULTIPLE RN'S AND ATTEMPS MADE TO RESTART IV.PT. SLIGHTLY COMBATIVE DURING THIS. CALMLY ALKED WITH PATIENT AND EXPLAINED WHAT WAS GOING ON. IV started left hand with #22 angiocath after 6 attempts. The IV site was prepped with Chloraprep. Heparin lock attached. Sterile dressing applied. Patient tolerated precedure well. Procedure performed according to [facility] policy & procedure. Zosyn infusing. RAFA GRIFFITHS J
--- NOTE | 2019-11-19 04:15 | NUR ---
[id number] PATIENT WOKE UP PULLED BIPAP OFF STARTED YELLING, WAS INCONT URINE. STAFF IN ROOM TO HELP CHANGE PATIENT AND PATIENT STARTED TO EXCALATE WITH YELLING AND TRYING TO CLIMB OUT OF BED TRIED REPEATEDLY TO REORIENT PATIENT IN CALM VOICE AND ACTIONS BUT PATIENT WOULD NOT LISTEN AND KEPT TRYING TO CLIMB OUT OF BED. PATIENT PULLED IV OUT AGAIN AND STOPPED IV ANTIBIOTIC INFUSION. SEVERAL STAFF MEMBER IN ROOM TRYING TO KEEP PATIENT SAFE. CALLED DR. SEYMOUR AND NOTIFIED HIM AND ORDER FOR GEODON OBTAINED. CALLED RESP. TO PLACE BIPAP BACK ON PATIENT. PT. SETTLED BACK DOWN IN BED WITH BIPAP IN USE. NOTED ON THE ARCHITECTURE INSTRUCTOR THAT PATIENT HAD GONE INTO POSSIBLE AFIB. ASKED RESP. TO DO AN EKG AND CALLED DR. SEYMOUR AND NOTIFIED HIM OF THIS AND ORDER FOR EKG WAS PLACED. WILL CONTINUE TO MONITOR PATIENT
--- NOTE | 2019-11-19 04:45 | NUR ---
CALLED DR. SEYMOUR AND NOTIFIED HIM EKG WAS DONE AND THAT PATIENT HAD PULLED HIS IV OUT AND PATIENT BLOOD SUGAR 232 AND IF THIS COULD BE USED FOR AM. DR. SEYMOUR SAID OKAY TO LEAVE IV OUT FOR NOW UNTIL AM SHIFT AND OKAY TO USE BLOOD SUGAR AM.
--- NOTE | 2019-11-19 05:14 | NUR ---
PER FABRIC INSPECTOR PATIENT HAS RETURNED TO [facility].
--- NOTE | 2019-11-19 07:00 | NUR ---
Pt still on the BiPap 18/10 and FiO2 65%. Alarms on and audible. Spo2 95%
--- NOTE | 2019-11-19 07:00 | NUR ---
ATTEMPTED IV RESTART BY 3 RNS AND UNSUCCESSFUL.
--- NOTE | 2019-11-19 07:43 | NUR ---
CALLED DR. BARRETT FOR PODIATRY CONSULT AND HE WILL SEE PATIENT.
--- NOTE | 2019-11-19 07:44 | NUR ---
CALLED DR. MELENDEZ AND MESSAGE LEFT ON PHONE THAT HE HAS NEW CONSULT TO CALL [facility] N[facility].
[2019-11-19 08:00] VITALS: BP 155/50
--- NOTE | 2019-11-19 09:36 | NUR ---
Braid Cutter in to talk to patient. Patient states lives at home with . There are no steps in the home. Physician: babita vázquez [facility] Home health services: none Patient's level of ADLs: MAX ASSIST Patient has working utilities: all working DME: home oxygen Follow-up physician's appointment after d/c: will be made by hospitalist nurse director upon discharge Does patient want to access PORTAL?: no Discharge plan case management visits with patient, he is on bipap and unable to have a conversation at this time, will discuss discharge plan including a short term halfway for wound care and physical therapy with patient's . ISIAH BELLE
--- NOTE | 2019-11-19 09:50 | NUR ---
CONSULT FOR DR MINAYA CALLED TO ANSWERING SERVICE.
[2019-11-19 10:13] LABS: BASO % 0.1 % (0.0-1.0); HEMATOCRIT 30.5 % (42.0-52.0); LYMPH # 0.9 10*3/uL (1.3-4.4); LYMPH % 5.2 % (27.0-41.0); MEAN CELL VOLUME 102.7 fl (80.0-94.0); MEAN CORPUSCULAR HGB 30.3 pg (27.0-31.0); MEAN CORPUSCULAR HGB CONC 29.5 g/dl (33.0-37.0); MEAN PLATELET VOLUME 9.6 fl (9.6-12.3); MONO # 0.7 10*3/uL (0.1-1.0); MONO % 4.3 % (3.0-9.0); NEUT # 15.4 10*3/uL (2.3-7.9); NEUT % 89.8 % (47.0-73.0); PLATELET COUNT AUTOMATED 431 10*3/uL (130-400); RED BLOOD COUNT 2.97 10*6/uL (4.50-5.90); RED CELL DISTRI WIDTH 13.7 % (0-14.5); WHITE BLOOD COUNT 17.1 10*3/uL (4.8-10.8)
[2019-11-19 10:31] LABS: BUN 15 mg/dl (7-24); CHLORIDE 97 mmol/L (98-107); CHOLESTEROL 72 mg/dL (<200); HDL CHOLESTEROL 33 mg/dl (40-60); LDL CHOLESTEROL 20 mg/dL (9-159); PHOSPHOROUS 3.2 mg/dL (2.5-4.9); POTASSIUM 4.2 mmol/L (3.5-5.1); SODIUM 140 mmol/L (136-145); TRIGLYCERIDES 96 mg/dl (<150); VLDL CHOLESTEROL 19 mg/dL (6-40)
[2019-11-19 11:04] LABS: VITAMIN D, 25-HYDROXY 44.2 ng/mL (30-100)
[2019-11-19 12:00] VITALS: BP 151/90
[2019-11-19 13:31] LABS: ABG BASE EXCESS 15.7 mmol/L (-2.0-2.0); ARTERIAL BLOOD GAS PH 7.426 (7.35-7.45)
--- NOTE | 2019-11-19 13:51 | NUR ---
Medicated with IV morphine as ordered per patient request for complaints of pain rated 10/10 to right heel.
--- NOTE | 2019-11-19 15:08 | NUR ---
Medication some what effective for pain pateint rates 7/10 pain scale now.
[2019-11-19 16:00] VITALS: BP 104/42
--- NOTE | 2019-11-19 16:57 | NUR ---
12:45 PT TAKEN OFF OF BIPAP AT THIS TIME. PLACED ON 6 L NC. TOLERATING WELL. ABG OBTAINED AT 13:15.
--- NOTE | 2019-11-19 16:58 | NUR ---
16:15 PT PLACED ON BIPAP AFTER 2+ HOUR REST ON 6 L NC. TOLERATED WELL.
--- NOTE | 2019-11-19 17:00 | NUR ---
16:40 PT TAKEN OFF OF BIPAP FOR MEAL TIME. PLACED ON 6 L NC. RESPS REGUALR AND UNLABORED.
--- NOTE | 2019-11-19 17:45 | NUR ---
BIPAP INITIATED AT THIS TIME. TOLERATING WELL. RESPS REGUALR AND UNLABORED
--- NOTE | 2019-11-19 19:00 | NUR ---
ASSUMED CARE FOR THIS PT AT THIS TIME. PT RESTING QUIETLY IN BED W/BIPAP ON. PT DENIES PAIN. CALL LIGHT IN REACH.
[2019-11-19 20:00] VITALS: BP 141/72
[2019-11-20] VITALS: BP 128/62
--- NOTE | 2019-11-20 01:09 | NUR ---
24 HR chart check completed.
--- NOTE | 2019-11-20 04:07 | NUR ---
PATIENT CURRENTLY UP IN CHAIR NOT WEARING BIPAP.
--- NOTE | 2019-11-20 04:50 | NUR ---
PT MEDICATED W/MORPHINE IVP FOR C/O BILATERAL FOOT PAIN 07/27. PT SITTING ON SIDE OF BED. REFUSING BIPAP AT THIS TIME. CALL LIGHT IN REACH.
--- NOTE | 2019-11-20 07:02 | NUR ---
PT REFUSING TO BE WEIGHED AT THIS TIME.
--- NOTE | 2019-11-20 07:10 | NUR ---
PT ON BIPAP AT THIS TIME.
--- NOTE | 2019-11-20 07:39 | NUR ---
This nurse went to evaluate patient for skin impairments patient getting echo at this time.
--- NOTE | 2019-11-20 07:40 | NUR ---
IN PT ROOM AND PT IS HAVING ECHO DONE AT THIS TIME, WILL COME BACK FOR ASSESSMENT
--- NOTE | 2019-11-20 08:30 | NUR ---
IN PT ROOM AT THIS TIME WITH [facility]LOE WOUND CARE NURSE. MEASURING WOUNDS AT THIS TIME
--- NOTE | 2019-11-20 08:50 | NUR ---
ISSA OJEDA [id number] Please refer to the physician's history and physical for past medical history, comorbid conditions, and allergies. Diagnosis: DIABETIC FOOT ULCER CHF Randall Score: 13,MODERATE RISK WOUND DESCRIPTIONS: Wound Number: 1 Location of the wound: RIGHT GREAT TOE INSIDE ASPECT Thickness: Full Size: 1.8cm X 2.7cm X 0.1cm Tunneling: NONE Undermining: NONE Sinus Tract: NONE Presence of Exudate: Serous Amount: Light Color: Yellow, Brown, Red Odor: Foul Periwound Skin Appearance: Erythema Wound edges: APPROXIMATED Pain (associated with wound): DENIED AT TIME OF ASSESSMENT How does patient state this happened? PATIENT UNSURE HOW LONG THIS AREA HAS BEEN THERE. STATES THAT IT HAS BEEN AT LEAST A "FEW WEEKS." Wound Number: 2 Location of the wound: RIGHT GREAT TOE OUTSIDE ASPECT Thickness: Full Size: 2cm X 3cm X 0.1cm Tunneling: NONE Undermining: NONE Sinus Tract: NONE Presence of Exudate: Serous sanguineous Amount: Light Color: Yellow Odor: Foul Periwound Skin Appearance: Erythema Wound edges: APPROXIMATED Pain (associated with wound): DENIED AT TIME OF ASSESSMENT How does patient state this happened? PATIENT UNSURE HOW LONG THIS AREA HAS BEEN THERE. STATES THAT IT HAS BEEN AT LEAST A "FEW WEEKS." WOUND #3 RIGHT 4TH TOE ANTERIOR SKIN INTACT AT TIME OF ASSESSMENT. NO DRAINAGE OR OPEN AREAS NOTED. Wound Number: 4 Location of the wound: RIGHT HEEL Thickness: Full Size: 8.5cm X 9.5cm X 0.1cm Tunneling: NONE Undermining: NONE Sinus Tract: NONE Presence of Exudate: Serous sanguineous Amount: Moderate Color: Black, Yellow, Red, White Odor: Foul Periwound Skin Appearance: Erythema Wound edges: APPROXIMATED Pain (associated with wound): DENIED AT TIME OF ASSESSMENT How does patient state this happened? PATIENT UNSURE HOW LONG THIS AREA HAS BEEN THERE. STATES THAT IT HAS BEEN AT LEAST A "FEW WEEKS." WOUND #5 RIGHT GREAT TOE NAIL AREA INTACT. NO OPEN AREAS NOTED. PATIENT STATES HE HAD TOE NAIL REMOVED APPROXIMATELY 8 YEARS AGO. Wound Number: 6 Location of the wound: LEFT POSTERIOR HEEL LATERAL Thickness: Partial Size: 1.8cm X 0.3cm X 0.1cm Tunneling: NONE Undermining: NONE Sinus Tract: NONE Presence of Exudate: None Amount: None Color: Red Odor: Foul Periwound Skin Appearance: Erythema Wound edges: APPROXIMATED Pain (associated with wound): DENIED AT TIME OF ASSESSMENT How does patient state this happened? PATIENT UNSURE HOW LONG THIS AREA HAS BEEN THERE. STATES THAT IT HAS BEEN AT LEAST A "FEW WEEKS." Wound Number: 7 Location of the wound: LEFT 2ND TOE Thickness: Full Size: 0.4cm X 0.3cm X <0.1cm Tunneling: NONE Undermining: NONE Sinus Tract: NONE Presence of Exudate: None Amount: None Color: Red. Brown Odor: Foul Periwound Skin Appearance: Erythema Wound edges: CLOSED Pain (associated with wound): DENIED AT TIME OF ASSESSMENT How does patient state this happened? PATIENT UNSURE HOW LONG THIS AREA HAS BEEN THERE. STATES THAT IT HAS BEEN AT LEAST A "FEW WEEKS." Wound Number: 8 Location of the wound: LEFT CHEEK ON FACE BESIDE NOSE Thickness: Partial Size: 1.8cm X 2.7cm X <0.1cm Tunneling: NONE Undermining: NONE Sinus Tract: NONE Presence of Exudate: None Amount: None Color: Red Odor: Foul Periwound Skin Appearance: Erythema Wound edges: CLOSED. INTACT SCAB. Pain (associated with wound): DENIED AT TIME OF ASSESSMENT How does patient state this happened? PATIENT STATES THIS AREA HAPPENED "4 DAYS AGO." Wound Number: 9 Location of the wound: OUTER NOSTRILS UPPER LIP Thickness: Full Size: 2cm X 3.5cm X <0.1cm Tunneling: NONE Undermining: NONE Sinus Tract: NONE Presence of Exudate: None Amount: None Color: Black Odor: None Periwound Skin Appearance: Erythema Wound edges: CLOSED Pain (associated with wound): DENIED AT TIME OF ASSESSMENT How does patient state this happened? PATIENT STATES THIS AREA HAPPENED "4 DAYS AGO." Wound Number: 10 Location of the wound: UNDER RIGHT 3RD TOE Thickness: Full Size: 0.4cm X 0.7cm X 0.1cm Tunneling: NONE Undermining: NONE Sinus Tract: NONE Presence of Exudate: None Amount: None Color: Red, Yellow Odor: Foul Periwound Skin Appearance: Erythema Wound edges: APPROXIMATED Pain (associated with wound): DENIED AT TIME OF ASSESSMENT How does patient state this happened? PATIENT UNSURE HOW LONG THIS AREA HAS BEEN THERE. STATES THAT IT HAS BEEN AT LEAST A "FEW WEEKS." Surface the patient is resting on: Position Pro SKIN PREVENTION RECOMMENDATION: 1. Pressure redistribution support surface as appropriate 2. Elevate heels 3. Remove boots/TEDS every shift and reapply 4. Head of bed 30 degrees as tolerated 5. Assess nutrition and hydration 6. Manage moisture 7. Avoid the use of containment devices while in bed 8. Use absorptive products on surfaces limit layers of linens on bed 9. Turn and reposition every 1-2 hours in bed and every 1 hour in chair as tolerated 10. Weight shifts every 15 minutes while up in chair 11. Offloading with pillows or device to keep heels elevated off bed 12. Monitor skin at least every shift 13. Inspect under medical devices twice a day WOUND TREATMENT RECOMMENDATIONS: PODIATRY ALREADY ON CONSULT. CLEANSE RIGHT GREAT TOE, RIGHT 4TH TOE, RIGHT HEEL, LEFT POSTERIOR HEEL, LEFT 2ND TOE, AND UNDER RIGHT 3RD TOE WITH NSS APPLY BETADINE AND COVER WITH DSD DAILY AND PRN SOILING. HEEL RAISER PRO BOOTS WHILE IN BED. ARTERIAL STUDIES TO BLE FOR NON HEALING WOUNDS. PATIENT STATES HE WISHES TO FOLLOW UP WITH PODIATRY WHEN DISCHARGED. DRESSING CHANGE: CLEANSE LEFT CHEEK BESIDE NOSE WITH NSS APPLY SUREPREP AND LEAVE OPEN TO AIR.
--- NOTE | 2019-11-20 09:00 | NUR ---
TRANSPORTATION TAKE PT AT THIS TIME FOR STRESS TEST
[2019-11-20 09:05] LABS: BASO % 0.2 % (0.0-1.0); EOS # 0.1 10*3/uL (0.0-0.4); EOS % 0.4 % (1.0-4.0); HEMATOCRIT 31.7 % (42.0-52.0); HEMOGLOBIN 9.3 g/dl (14.0-18.0); LYMPH # 1.3 10*3/uL (1.3-4.4); LYMPH % 9.8 % (27.0-41.0); MEAN CELL VOLUME 103.9 fl (80.0-94.0); MEAN CORPUSCULAR HGB 30.5 pg (27.0-31.0); MEAN CORPUSCULAR HGB CONC 29.3 g/dl (33.0-37.0); MEAN PLATELET VOLUME 9.3 fl (9.6-12.3); MONO # 0.7 10*3/uL (0.1-1.0); NEUT # 11.5 10*3/uL (2.3-7.9); NEUT % 84.2 % (47.0-73.0); PLATELET COUNT AUTOMATED 397 10*3/uL (130-400); RED BLOOD COUNT 3.05 10*6/uL (4.50-5.90); RED CELL DISTRI WIDTH 14.4 % (0-14.5); WHITE BLOOD COUNT 13.6 10*3/uL (4.8-10.8)
[2019-11-20 09:13] LABS: BUN 17 mg/dl (7-24); CHLORIDE 96 mmol/L (98-107); CREATININE 0.75 mg/dL (0.70-1.30); POTASSIUM 3.9 mmol/L (3.5-5.1); SODIUM 138 mmol/L (136-145)
--- NOTE | 2019-11-20 09:33 | NUR ---
Dr. Tuttle notified of wound care recommendations.
--- NOTE | 2019-11-20 09:40 | NUR ---
PT IN NUCLEAR MEDICINE AND UNABLE TO LAY FOR SCANNING BECAUSE OF SHORTNESS OF BREATH WITH LAYING DOWN. SPO2 OF 95%-97% WITH NASAL O2 AT 6L. DR. LÓPEZ EXAMINED PATIENT AND TAKEN TO RADIOLOGY FOR CHEST X-RAY. PT TO RETURN TO NURSING UNIT AND WILL BE RE-EVALUATED AFTER CHEST X-RAY. REPORT CALLED TO NURSING UNIT AND TO REMAIN NPO.
--- NOTE | 2019-11-20 11:22 | NUR ---
CALLED DR LÓPEZ PER TP REQUEST PT IS REFUSING HAVING HIS STRESS TEST DONE BECAUSE HE IS NOT ABLE TO LAY DOWN. DR LÓPEZ STATES THAT HE CAN NOW EAT DUE TO NOT WANTING THE STRESS TEST DONE, WILL TRY LATER TO SEE IF PATIENT HAS CHANGED HIS MIND
--- NOTE | 2019-11-20 11:31 | NUR ---
CALLED [facility]ION TO INFORM HIM THE PATIENT IS REFUSING HIS STERSS TEST, TOLD HIM THAT DR LÓPEZ WAS ALREADY INFORMED OF THIS. OK TO RESUME 1800 DIET AT THIS TIME.
--- NOTE | 2019-11-20 11:54 | NUR ---
MEDICATED WITH NORCO FOR COMPLAINTS OF PAIN IN RIGHT HEEL. RATES PAIN A 8 ON A PAIN SCALE OF 1-10
[2019-11-20 12:00] VITALS: BP 129/52
--- NOTE | 2019-11-20 12:00 | NUR ---
PT STATES THAT HE NOW WANTS TO HAVE HIS US OF BILATERAL LEGS DONE, HE STATES HE WAS COLD BUT KNOWS THAT HE NEEDS IT DONE SO IS WILLING TO TRY AGAIN
--- NOTE | 2019-11-20 13:00 | NUR ---
CALLED DR SEYMOUR TO LET HIM KNOW THAT THE PATIENT NOW WANTS TO HAVE HIS ULTRASOUND OF HIS LEGS DONE AND WILL DO HIS STRESS TEST.
--- NOTE | 2019-11-20 13:15 | NUR ---
PT O2 DROPS DOWN TO 73, ULTRASOUND IN THE ROOM NOW GETTING BILATERAL US OF THE LEGS. WHEN THE PT GOES TO LAY FLAT IS WHEN HIS O2 DROPS. HAD THE PT TAKE DEEP BREATHS AND THAT BROUGHT UP O2
--- NOTE | 2019-11-20 13:22 | NUR ---
CALLED [facility] TO LET THEM KNOW THAT THE PATIENTS DIET WAS CHANGED EARLIER WHEN HE REFUSED THE STRESS TEST, AND NOW THE PATIENT WANTS TO HAVE THE STRESS TEST DONE TOMORROW, THEY STATED 'OK I WILL LET DR LÓPEZ KNOW'
--- NOTE | 2019-11-20 14:13 | NUR ---
PHYSICAL THERAPY Chart reviewed pt for venous doppler studies will await results prior to PT will follow Lydia Rosa PT
--- NOTE | 2019-11-20 14:14 | NUR ---
Occupational therapy orders received and chart reviewed. Per chart review, patient was having an ultrasound performed. Will follow up with patient pending results of ultrasound. Thank you. Flores Oglesby OTR/L
[2019-11-20 16:00] VITALS: BP 127/60
--- NOTE | 2019-11-20 16:00 | NUR ---
PT REFUSING TO BE ON BIPAP, STATES HE ONLY WANTS TO BE ON IT AT NIGHT
--- NOTE | 2019-11-20 16:18 | NUR ---
PT STATES THAT HE FEELS SICK TO HIS STOMACH, PRN ZOFRAN IV IS GIVEN AT THIS TIME
--- NOTE | 2019-11-20 19:00 | NUR ---
ASSUMED CARE FOR THIS PT AT THIS TIME. PT SITTING ON SIDE OF BED. PT LETHARGIC AND TWITCHING. PT ASSISTED TO LIE DOWN AND BIPAP PLACED ON PT. BED ALARM ON W/CALL LIGHT IN REACH. WILL MONITOR.
[2019-11-20 20:00] VITALS: BP 104/57
[2019-11-21] VITALS: BP 133/67
--- NOTE | 2019-11-21 01:36 | NUR ---
PT MEDICATED W/ZOFRAN FOR C/O NAUSEA. REPOSITIONED IN BED. WILL MONITOR.
--- NOTE | 2019-11-21 02:00 | NUR ---
PRN ZOFRAN EFFECTIVE FOR NAUSEA. PT REMAINS ANXIOUS AND CONTINUOUSLY DISASSEMBLES BIPAP EQUIPMENT. PT DESATS QUICKLY WHEN OFF OF BIPAP/O2. WILL CONTINUE TO MONITOR.
--- NOTE | 2019-11-21 04:28 | NUR ---
24 HR chart check completed.
--- NOTE | 2019-11-21 04:49 | NUR ---
PT CONTINUOUSLY REMOVING BIPAP THROUGHOUT THE NIGHT AND SITTING UP ON SIDE OF BED. RESP APPLIED DIFF STYLE MASK. PT REPOSITIONED MULTIPLE TIMES. PT TEACHING GIVEN. PT REMAINS NON COMPLIANT W/O2 AND BIPAP USE. PT REMOVES NC AND PULLS APART BIPAP TUBING. DR. LUIS MADE AWARE. BED ALARM ON W/CALL LIGHT IN REACH.
[2019-11-21 06:45] LABS: BASO % 0.2 % (0.0-1.0); EOS # 0.1 10*3/uL (0.0-0.4); EOS % 0.9 % (1.0-4.0); HEMATOCRIT 31.1 % (42.0-52.0); LYMPH # 1.2 10*3/uL (1.3-4.4); LYMPH % 9.8 % (27.0-41.0); MEAN CORPUSCULAR HGB 30.1 pg (27.0-31.0); MEAN CORPUSCULAR HGB CONC 28.9 g/dl (33.0-37.0); MEAN PLATELET VOLUME 9.6 fl (9.6-12.3); MONO # 0.7 10*3/uL (0.1-1.0); MONO % 5.5 % (3.0-9.0); NEUT # 10.2 10*3/uL (2.3-7.9); NEUT % 83.2 % (47.0-73.0); PLATELET COUNT AUTOMATED 412 10*3/uL (130-400); RED BLOOD COUNT 2.99 10*6/uL (4.50-5.90); RED CELL DISTRI WIDTH 14.4 % (0-14.5); WHITE BLOOD COUNT 12.2 10*3/uL (4.8-10.8)
[2019-11-21 07:10] LABS: BUN 14 mg/dl (7-24); CHLORIDE 96 mmol/L (98-107); CREATININE 0.66 mg/dL (0.70-1.30); POTASSIUM 3.9 mmol/L (3.5-5.1); SODIUM 139 mmol/L (136-145)
[2019-11-21 08:00] VITALS: BP 128/58
--- NOTE | 2019-11-21 08:06 | NUR ---
PT REFUSED 100 UNITS 70/30 . AT BEDSIDE AND AGREED. PT VOICES NO OTHER NEEDS AT THIS TIME. CALL LIGHT IN REACH.
--- NOTE | 2019-11-21 08:30 | NUR ---
case management visits with patient, present, discussed with them a short term [facility] for [facility]hab prior to returning home, both were in agreement with them, discussed with them two choices for SNF and stated they would be ok with any facility that takes patient's insurance, automatic data processing planner will work on this, case management will follow
--- NOTE | 2019-11-21 09:45 | NUR ---
PHYSICAL THERAPY [place]illa completed high level of complexity [id number] full report to follow recomend SNF at discharge. PT to work on transfers,standing,bed mobiltiy balance safety and strenghthening. Pt to be NWB RLE due to heel ulcer and WBAT LLE per podiatry. Pt for possible surgery today or tomorrow on RLE. Lydia Rosa PT
--- NOTE | 2019-11-21 10:09 | NUR ---
Dr. Tuttle notified of wound care recommendations.
--- NOTE | 2019-11-21 10:20 | NUR ---
DR LÓPEZ ROUNDED AND SEEN PT AND CLEARED PT FOR SURGERY TOMORROW ON DEBRIDEMENT OF RIGHT FOOT. PT WILL BE CONSIDERED HIGH RISK. PT STILL REFUSES STRESS TEST.PER DR LÓPEZ PT WILL BE MANAGED CONSERVATIVELY WITH MEDICATION.PT AT BEDSIDE AND AGREED PT DID NOT NEED TO HAVE STRESS TEST AT THIS TIME.
--- NOTE | 2019-11-21 11:26 | NUR ---
Patient/ requesting a referral to 1. [facility] and 2. [facility]. Contacted both facilities and faxed referrals. Waiting on review/acceptance for either facility. Requires precert.
[2019-11-21 12:00] VITALS: BP 124/58
--- NOTE | 2019-11-21 12:23 | NUR ---
DR BARRETT AT BEDSIDE AND CHANGED DRESSINGS TO BLE. ORDERS RECIEVED FOR DEBRIDEMENT TOMORROW IN OR.
--- NOTE | 2019-11-21 13:08 | NUR ---
Rob results of insurance check: [employer] is the primary insurance. the deductable has been met, OOP max is 650 and remaining is 195.00. Co insurance is 10% once OOP max is met. Covered at 100% in network. precert required.
--- NOTE | 2019-11-21 13:09 | NUR ---
Occupational therapy orders received and OT evaluation completed in full on floor four. Patient precautions include fall risk, bed alarms, RLE NWB, LLE WBAT, SOB, 6LO2, B/L fredo boots, right shoulder IV port. Per OT eval, OT recommend a SNF. Patient complexity is high, [id number]. Thank you for the referral. Flores Oglesby, OTR/L
--- NOTE | 2019-11-21 13:19 | NUR ---
[facility] stating they are unable to accept this patient as he is a high risk patient and they cannot meet his needs at this time. Prudencio deng is reviewing and Rob has completed insurance check and is reviewing patients chart.
--- NOTE | 2019-11-21 13:35 | NUR ---
[facility] stating they are able to accept this patient and can start precert when patient is more appropriate for discharge.
[2019-11-21 16:00] VITALS: BP 146/61
--- NOTE | 2019-11-21 17:35 | NUR ---
TYLENOL 650 MG GIVEN FOR LOW GRADE TEMP.
--- NOTE | 2019-11-21 18:45 | NUR ---
DR STOKES IN TO SEE PT.
--- NOTE | 2019-11-21 19:54 | NUR ---
ASSUMED CARE FOR THIS PT AT THIS TIME. PT RESTING QUEITLY IN BED. DENIES PAIN/SOB AT PRESENT TIME. CURRENTLY RECEIVING BREATHING TX. HR 90'S. CALL LIGHT IN REACH.
[2019-11-21 20:00] VITALS: BP 128/51
[2019-11-22] VITALS (9 sets, daily range): BP systolic 112–157; BP diastolic 45–69
--- NOTE | 2019-11-22 04:46 | NUR ---
Upon discharge recommend patient to follow up for wound care in outpatient setting continue current wound care orders at discharging facility.
--- NOTE | 2019-11-22 06:39 | NUR ---
NICOTENE PLACED ON RIGHT SHOULDER PER PT REQUEST AT THIS TIME. NO PATCH FROM YESTERDAY FOUND TO BE REMOVED.
[2019-11-22 07:06] LABS: ALBUMIN 2.3 gm/dl (3.1-4.5); ALKALINE PHOSPHATASE 93 U/L (45-117); BUN 13 mg/dl (7-24); CHLORIDE 96 mmol/L (98-107); CREATININE 0.68 mg/dL (0.70-1.30); POTASSIUM 3.7 mmol/L (3.5-5.1); SGOT/AST 17 IU/L (3-35); SGPT/ALT 22 U/L (12-78); SODIUM 137 mmol/L (136-145); TOTAL PROTEIN 7.3 gm/dL (6.4-8.2)
[2019-11-22 07:14] LABS: BASO % 0.2 % (0.0-1.0); EOS # 0.1 10*3/uL (0.0-0.4); EOS % 0.7 % (1.0-4.0); HEMOGLOBIN 9.4 g/dl (14.0-18.0); MEAN CORPUSCULAR HGB 30.6 pg (27.0-31.0); MEAN CORPUSCULAR HGB CONC 30.3 g/dl (33.0-37.0); MEAN PLATELET VOLUME 9.9 fl (9.6-12.3); MONO # 0.5 10*3/uL (0.1-1.0); MONO % 4.8 % (3.0-9.0); NEUT # 9.6 10*3/uL (2.3-7.9); NEUT % 84.7 % (47.0-73.0); PLATELET COUNT AUTOMATED 378 10*3/uL (130-400); RED BLOOD COUNT 3.07 10*6/uL (4.50-5.90); WHITE BLOOD COUNT 11.3 10*3/uL (4.8-10.8)
--- NOTE | 2019-11-22 12:03 | NUR ---
Nutritional Support Services Note: Pt is NPO at this time for surgery. Previous diet 1800cal with Glucerna OS po TID with meals. Will follow as needed. Encourage compliance to diet for healing. [facility] [address]
--- NOTE | 2019-11-22 12:40 | NUR ---
PT OFF FLOOR VIA BED TO OR FOR RIGHT FOOT DEBRIDEMENT WITH DR LAUREANO.
--- NOTE | 2019-11-22 13:01 | NUR ---
12:15 PT TAKEN OFF OF BIPAP. PT FOR APPROX. 1 1/2 HRS. TOLERATED WELL. PT PLACED ON 6 L HFNC.
--- NOTE | 2019-11-22 13:15 | NUR ---
OT NOTE Attempted to see pt this P.M. for OT session and upon arrival pt was out of the room for surgery. Will check back at a later time/date and continue with POC as able. KRYSTAL Foss/Dana
--- NOTE | 2019-11-22 21:05 | NUR ---
PATIENT ASSESSMENT COMPLETED AT THIS TIME WITHOUT INCIDENT, PATIENT CURRENTLY ON HIGH FLOW NC 6LPM. DENIES CHEST PAIN/PRESSURE, DOES COMPLAIN OF SHORTNESS OF BREATH ON THE HIGH FLOW NC6 LPM BUT IS REFUSING TO USE BIPAP AT THIS TIME. COACHED ON PURSED LIP BREATHING TECHNIQUES. MEDIATIONS AND IV ANTIBIOTICS GIVEN WITHOUT INCIDENT. WOUND VAC INTACT AND FUNCTIONING AT ORDERED [facility] CALL LIGHT WITHIN REACH, WILL CONTINUE TO MONITOR.
--- NOTE | 2019-11-22 21:05 | NUR ---
PRN NORCO GIVEN AT THIS TIME FOR 10/10 PAIN IN RIGHT FOOT FROM SURGICAL PROCEDURE TODAY.
--- NOTE | 2019-11-22 21:35 | NUR ---
REINFORCED NONWEIGHT BEARING STATUS ON RIGHT FOOT WITH PATIENT AT THIS TIME HE WAS STANDING AT BEDSIDE AND WAS PREPARING TO WALK TO BEDSIDE COMMODE. PATIENT STATED THAT HE UNDERSTOOD EDUCATION AND EXPLANATION AT THIS TIME. WOUND VAC REMAINS INTACT AND FUNCTIONING AT [facility].
--- NOTE | 2019-11-22 22:00 | NUR ---
PATIENT STATED PAIN WAS NOW A 6/10 AFTER PRN NORCO. PATIENT A&O X3 AT THIS TIME.
[2019-11-23] VITALS: BP 142/69
--- NOTE | 2019-11-23 02:03 | NUR ---
ZACK TO USE PICC PER DR. AGGARWAL.
--- NOTE | 2019-11-23 02:47 | NUR ---
BED ALARM ALERTING AND UPON ENTERING ROOM PATIENT WAS FOUND TO HAVE AMBULATED TO THE DOORWAY TO TURN UP THE THERMOSTAT. PATIENT REEDUCATED ON NONWEIGHT BEARING STATUS AND USE OF WALKER WHEN AMBULATING. WOUND VAC INTACT AND FUNCTIONING AT [facility], MODERATE AMOUNT OF BLOODY DRAINAGE NOTED IN VAC TUBING AT THIS TIME. PATIENT ASSISTED BACK AND INTO BED, CALL LIGHT WITHIN REACH WILL CONTINUE TO MONITOR.
--- NOTE | 2019-11-23 02:50 | NUR ---
24 HOUR CHART CHECK COMPLETED
[2019-11-23 06:56] LABS: BASO % 0.3 % (0.0-1.0); EOS # 0.1 10*3/uL (0.0-0.4); EOS % 0.5 % (1.0-4.0); HEMATOCRIT 30.3 % (42.0-52.0); HEMOGLOBIN 9.1 g/dl (14.0-18.0); LYMPH # 1.1 10*3/uL (1.3-4.4); LYMPH % 7.4 % (27.0-41.0); MEAN PLATELET VOLUME 9.9 fl (9.6-12.3); MONO # 0.7 10*3/uL (0.1-1.0); MONO % 4.8 % (3.0-9.0); NEUT # 12.7 10*3/uL (2.3-7.9); NEUT % 86.5 % (47.0-73.0); PLATELET COUNT AUTOMATED 443 10*3/uL (130-400); RED BLOOD COUNT 3.03 10*6/uL (4.50-5.90); RED CELL DISTRI WIDTH 14.2 % (0-14.5); WHITE BLOOD COUNT 14.7 10*3/uL (4.8-10.8)
[2019-11-23 07:26] LABS: ALBUMIN 2.4 gm/dl (3.1-4.5); ALKALINE PHOSPHATASE 95 U/L (45-117); BUN 12 mg/dl (7-24); CHLORIDE 96 mmol/L (98-107); CREATININE 0.68 mg/dL (0.70-1.30); POTASSIUM 3.6 mmol/L (3.5-5.1); SGOT/AST 24 IU/L (3-35); SGPT/ALT 29 U/L (12-78); SODIUM 135 mmol/L (136-145); TOTAL PROTEIN 7.5 gm/dL (6.4-8.2)
--- NOTE | 2019-11-23 08:43 | NUR ---
Medicated with zofran iv per prn order for complaints of nausea.
--- NOTE | 2019-11-23 09:00 | NUR ---
case management visits with patient, discussed with him choosing a facility between [facility] and [facility], educating him on what each facility offers and their locations, patient stated he did not want to go to [facility], but did want to go to [facility], demand planner will contact [facility] and have them initiate insurance precert, case management will follow
--- NOTE | 2019-11-23 09:05 | NUR ---
PHYSICAL THERAPY Patient seen this am 1:1 for therapy visit and was sitting up on EOB upon therapist arrival. Patient identified by name / and presented with IV treatment, R foot wound vac, continuos hi flow O2-6L via NC. Patient reports no new c/o's and is NWB on R LE. Patient educated on importance of maintaining NWB status for wound healing and performed several sit to stand transfers, use of wh walker standing support, MIN A, tolerating static stand approx 1 minute each trial. Patient needed repeated v/c's to maintain NWB status on R LE, then completed SPT to bedside chair MIN A. Patient required additional v/c's to safely complete transfer, demonstrating increased difficulty with walker / step sequence. Patient only 50% compliant with NWB status this session and remained in bedside chair with B Heel protectors, call light, tray table, telephone and body alarm. Will continue per POC as tolerated, total treatment time 15 minutes. Jose Zurita, MACHINING ASSOCIATE
--- NOTE | 2019-11-23 09:30 | NUR ---
STATES THAT ZOFRAN EFFECTIVE.
--- NOTE | 2019-11-23 10:17 | NUR ---
OT NOTE PATIENT SEEN 15 MINUTES OT THIS DATE. PATIENT IDENTIFIED BY NAME AND DATE OF . PATIENT SEATED EOB WITH GOOD SIT BALANCE DEMONSTRATED. PATIENT REQUIRED MAX A TO DOFF HEEL PROTECTORS. COMPLETED STAND PIVOT TRANSFER BED TO RECLINER MIN A WITH PATIENT REQUIRING MOD VERBAL CUES TO COMPLY RLE NWB PRECAUTIONS PATIENT REQUIRED ASSISTANCE IV POLE, MANAGE O2 TUBING ON 6 L 02, AND WOUND VAC. PATIENT SEATED IN RECLINER END OF SESSION WITH NURSING PRESENT. CHAIR ALARM AND CALL LIGHT INTACT. NO FURTHER NEEDS VERBALIZED. CONTINUE TOWARDS PLAN OF CARE. BRENDA RICE/Dana
--- NOTE | 2019-11-23 11:17 | NUR ---
Faxed Additional Clinicals to [facility] at [facility]. Notified that patient would require a Wound Vac. Faxed PT/OT and Wound Care Orders and Advised to begin Precert.
--- NOTE | 2019-11-23 11:56 | NUR ---
HENS completed online for Nursing Facility Placement. Copy placed in chart.
[2019-11-23 12:00] VITALS: BP 90/52
--- NOTE | 2019-11-23 13:00 | NUR ---
PHYSICAL THERAPY Patient was resting semi reclined in bedside chair on Bi-Pap this pm and not appropriate for treatment at this time. Will continue per POC as able. Jose Zurita, PICK UP MAN
--- NOTE | 2019-11-23 13:18 | NUR ---
Bipap orders faxed to [facility] [phone].
--- NOTE | 2019-11-23 15:48 | NUR ---
PT INSTRUCTED ON FV USE AND DEMONSTRATED WELL HIS UNDERSTANDING.
[2019-11-23 16:00] VITALS: BP 106/50
--- NOTE | 2019-11-23 19:25 | NUR ---
24 HOUR CHART CHECK COMPLETE
--- NOTE | 2019-11-23 19:50 | NUR ---
PRN NORCO GIVEN AT THIS TIME FOR 8/10 PAIN IN RIGHT FOOT FROM DEBRIDEMENT AND WOUND VAC.
[2019-11-23 20:00] VITALS: BP 115/46
--- NOTE | 2019-11-23 20:50 | NUR ---
PATIENT STATED THAT PAIN WAS NOW A 6/10 AFTER PRN NORCO, PATIENT A&O X3 AT THIS TIME.
[2019-11-24] VITALS: BP 124/47; BP 130/59
--- NOTE | 2019-11-24 08:20 | NUR ---
PHYSICAL THERAPY Patient seen this am 1;1 for therapy visit and was supine in bed upon therapist arrival. Patient identified by name / and presented with IV treatment, continuos 02-6L hi flow via NC and R foot wound vac. Patient is also NWB on R LE and transfers supine to sit EOB with MOD A x 1. Patient received extensive education on importance / compliance with NWB status on R LE. Patient voiced his understanding and performed sit to stand transfer, use of wh walker standing support, MIN A x 2. Patient very unsteady upon initial rise and needed several v/c's to complete safe SPT to bedside chair. Patient demonstrated POOR walker safety awareness, was only 50% compliant with NWB status and needed v/c for proper hand placement prior to sitting down. Patient remained in bedside chair with call light, tray table, B heel protectors, cell phone and body alarm for safety. Will continue per POC as tolerated, total treatment time 14 minutes. Joes Zurita, PORT SURVEYOR
--- NOTE | 2019-11-24 08:22 | NUR ---
PHYSICAL THERAPY Update POC STG: Transfers Min x 2 overall, Standing >2 minutes min x 2 NWB of RLE w verbal/tactile cues Bed to Chair with AD Min-Mod x 2 LTG: Transfers Min x 1 overall, Standing >2 minutes Min x 1 NWB of RLE w verbal cues, Bed to Chair Min x 2 w AD Cont LE ex 2 x 10 AROM as tolerated Lydia Rosa PT
--- NOTE | 2019-11-24 09:00 | NUR ---
case management visits with patient, waiting on insurance precert to be transferred to [facility], no other needs at this time
[2019-11-24 09:02] LABS: BASO % 0.3 % (0.0-1.0); EOS # 0.1 10*3/uL (0.0-0.4); EOS % 1.3 % (1.0-4.0); HEMATOCRIT 29.4 % (42.0-52.0); HEMOGLOBIN 8.9 g/dl (14.0-18.0); LYMPH # 1.2 10*3/uL (1.3-4.4); LYMPH % 12.9 % (27.0-41.0); MEAN CELL VOLUME 100.3 fl (80.0-94.0); MEAN CORPUSCULAR HGB 30.4 pg (27.0-31.0); MEAN CORPUSCULAR HGB CONC 30.3 g/dl (33.0-37.0); MEAN PLATELET VOLUME 9.8 fl (9.6-12.3); MONO # 0.5 10*3/uL (0.1-1.0); MONO % 5.6 % (3.0-9.0); NEUT # 7.6 10*3/uL (2.3-7.9); NEUT % 79.5 % (47.0-73.0); PLATELET COUNT AUTOMATED 367 10*3/uL (130-400); RED BLOOD COUNT 2.93 10*6/uL (4.50-5.90); RED CELL DISTRI WIDTH 14.4 % (0-14.5); WHITE BLOOD COUNT 9.6 10*3/uL (4.8-10.8)
[2019-11-24 09:32] LABS: BUN 18 mg/dl (7-24); CHLORIDE 97 mmol/L (98-107); CREATININE 0.73 mg/dL (0.70-1.30); POTASSIUM 3.9 mmol/L (3.5-5.1); SODIUM 138 mmol/L (136-145)
--- NOTE | 2019-11-24 10:23 | NUR ---
OT NOTE PATIENT SEEN OT THIS DATE 15 MINUTES. PATIENT COMPLETED SUPINE TO SIT EOB HECTOR. COMPLETED GROOMING TASK SEATED EOB COMBING HAIR SBA AFTER ALMANZA. COMPLETED UB DRESSING DON GOWN MIN A. COMPLETED STAND PIVOT TRANSFER BED TO RECLINER HECTOR X 2 WITH PATIENT REQUIRING MOD VERBAL CUES TO MAINTAIN R LE NWB DUE TO NON COMPLIANCE. PATIENT SEATED IN RECLINER WITH CALL LIGHT IN REACH AND CHAIR ALARM INTACT. CONTINUE TOWARDS PLAN OF CARE. BRENDA RICE/Dana
[2019-11-24] MEDS ORDERED: METRONIDAZOLE500 M1 PO (10:57)
[2019-11-24] MEDS ORDERED: CEFEPIME2 GM/100 M IV (10:57)
[2019-11-24 12:00] VITALS: BP 113/50
--- NOTE | 2019-11-24 12:33 | NUR ---
Patient has received auth for [facility], ok to discharge if medically stable for discharge. Resident Dr. Dhillon notified.
--- NOTE | 2019-11-24 13:33 | NUR ---
Patient has received auth for [facility], however the wound vac is not expected to be onsite until tomorrow, Wednesday11/25/19.
[2019-11-24 16:00] VITALS: BP 117/47
--- NOTE | 2019-11-24 16:33 | NUR ---
OCCUPATIONAL THERAPY CO-SIGN I approve of the Occupational Therapy notes written above. BNO BOYER OTR/Dana
--- NOTE | 2019-11-24 16:34 | NUR ---
PHYSICAL THERAPY CO-SIGN I approve of the Physical Therapy notes written above. Lydia Rosa PT
[2019-11-24 17:09] LABS: ACID FAST SPEC PROCESSING Tissue Grinding (.)
[2019-11-24 17:09] LABS: ACID FAST SPEC PROCESSING Tissue Grinding (.)
[2019-11-24 17:09] LABS: ACID FAST SPEC PROCESSING Tissue Grinding (.)
[2019-11-24 17:09] LABS: ACID FAST SPEC PROCESSING Tissue Grinding (.)
[2019-11-24 20:00] VITALS: BP 120/45
--- NOTE | 2019-11-24 21:30 | NUR ---
PT SITTING UP IN RECLINER CHAIR. RESP-EASY AND REGULAR. OXYGEN IN USE. NO C/O AT THIS TIME. WOUND VAC IN PLACE. [id number], SEE EMAR. CALL LIGHT IN REACH.
--- NOTE | 2019-11-24 23:00 | NUR ---
ASSUMED CARE FOR THIS PT AT THIS TIME. PT SITTING UP IN RECLINER CHAIR. CALL LIGHT IN REACH. PT REFUSING TO WEAR BIPAP. WOUND VAC INTACT AND SUCTIONING AT 200MMHG CONTINUOUS.
--- NOTE | 2019-11-24 23:56 | NUR ---
PT MEDICATED W/NORCO FOR C/O FOOT PAIN. CALL LIGHT IN REACH.
[2019-11-25] VITALS: BP 108/52
--- NOTE | 2019-11-25 01:30 | NUR ---
PT STATES THE NORCO WAS EFFECTIVE FOR PAIN RELIEF.
--- NOTE | 2019-11-25 04:00 | NUR ---
CHECKED ON PT AT THIS TIME. SAT 67%. PT DENIES SOB. PT STATES HE DOESN'T FEEL ANY O2 COMING OUT OF THE NC. A HISSING NOSE NOTED FROM HUMIDIFIED BOTTLE. BOTTLE REPLACED. SAT INCREASED TO 92%. WILL CONTINUE TO MONITOR.
[2019-11-25 08:00] VITALS: BP 119/48
[2019-11-25] MEDS ORDERED: LASIX40 MG PO (10:23)
[2019-11-25] MEDS ORDERED: NORCO 5-325 TA1 EACH PO (10:23)
[2019-11-25 12:00] VITALS: BP 132/42
--- NOTE | 2019-11-25 13:33 | NUR ---
CATHFLO INSTILLED TO RED PICC PORT. DWELLING PER CATHFLO INSTRUCTIONS. WILL MONITOR AND RECHECK FOR FUNCTION.
--- NOTE | 2019-11-25 14:15 | NUR ---
CATHFLO PULLED FROM PICC LINE. FLUSHED WITH NSS WITH EASE. WILL CONTINUE TO MONITOR.
[2019-11-25 16:00] VITALS: BP 123/47
[2019-11-25 20:00] VITALS: BP 117/52
--- NOTE | 2019-11-25 21:20 | NUR ---
ZOFRAN GIVEN FOR C/O NAUSEA. WILL CONT TO MONITOR. CALL LIGHT IN REACH. SIDE RAILS X2
[2019-11-26] VITALS: BP 119/56
[2019-11-26 07:18] LABS: BUN 12 mg/dl (7-24); CHLORIDE 95 mmol/L (98-107); CREATININE 0.68 mg/dL (0.70-1.30); POTASSIUM 4.3 mmol/L (3.5-5.1); SODIUM 137 mmol/L (136-145)
[2019-11-26 07:32] LABS: BASO % 0.3 % (0.0-1.0); EOS # 0.2 10*3/uL (0.0-0.4); EOS % 1.8 % (1.0-4.0); HEMATOCRIT 29.4 % (42.0-52.0); HEMOGLOBIN 8.7 g/dl (14.0-18.0); LYMPH # 1.3 10*3/uL (1.3-4.4); LYMPH % 12.6 % (27.0-41.0); MEAN CORPUSCULAR HGB 29.9 pg (27.0-31.0); MEAN CORPUSCULAR HGB CONC 29.6 g/dl (33.0-37.0); MONO # 0.6 10*3/uL (0.1-1.0); MONO % 5.6 % (3.0-9.0); NEUT # 8.2 10*3/uL (2.3-7.9); NEUT % 79.2 % (47.0-73.0); PLATELET COUNT AUTOMATED 434 10*3/uL (130-400); RED BLOOD COUNT 2.91 10*6/uL (4.50-5.90); RED CELL DISTRI WIDTH 14.4 % (0-14.5); WHITE BLOOD COUNT 10.4 10*3/uL (4.8-10.8)
[2019-11-26 08:00] VITALS: BP 140/56
--- NOTE | 2019-11-26 11:06 | NUR ---
IN FROM PODIATRY TO CHANGE BILAT WOUND DRSGS AND WOUND VAC. TOLERATED WELL. 9 BENJI NOTED TO GREAT TOE WOUND/GRAFT ON RT FOOT AND 13 BENJI NOTED TO RT HEEL WOUND/GRAFT.
[2019-11-26 12:00] VITALS: BP 120/47
--- NOTE | 2019-11-26 13:43 | NUR ---
UNABLE TO OBTAIN POST-DEBRIDEMENT PICS/MEASUREMENTS DURING WOUND CARE. PODIATRY CHANGED DRSGS TODAY.
[2019-11-26 16:00] VITALS: BP 123/55
[2019-11-26 20:00] VITALS: BP 123/56
[2019-11-27] VITALS (10 sets, daily range): BP systolic 108–132; BP diastolic 40–57
--- NOTE | 2019-11-27 06:08 | NUR ---
DR LANDIS NOTIFIED THAT PATIENT BG THIS AM IS 82 AND SYMPTOMATIC, ALSO NPO FOR BRONCH. STATES OK TO GIVE DEXTROSE.
--- NOTE | 2019-11-27 06:44 | NUR ---
PT STATES HE DOES NOT WANT DEXTROSE
--- NOTE | 2019-11-27 07:30 | NUR ---
ISSA OJEDA [id number] Please refer to the physician's history and physical for past medical history, comorbid conditions, and allergies. Diagnosis: DIABETIC FOOT ULCER CHF Randall Score: 13,MODERATE RISK WOUND DESCRIPTIONS: WOUNDS #1, 2, 3, 4, 5, 6, 7, AND 10 NOT VISUALIZED DUE TO WRAPS PLACED BY PODIATRY 11/26/19 PER PODIATRY NOTE. Wound Number: 8 Location of the wound: LEFT CHEEK ON FACE BESIDE NOSE Thickness: Partial Size: 1cm X 2cm X <0.1cm Tunneling: NONE Undermining: NONE Sinus Tract: NONE Presence of Exudate: NONE Amount: None Color: Red Odor: None Periwound Skin Appearance: Normal Wound edges: CLOSED INTACT SCAB Pain (associated with wound): DENIED WOUND #9 OUTER NOSTRILS UPPER LIP SKIN INTACT AT TIME OF ASSESSMENT. NO DRAINAGE OR OPEN AREAS AT TIME OF ASSESSMENT. Surface the patient is resting on: Position Pro SKIN PREVENTION RECOMMENDATION: 1. Pressure redistribution support surface as appropriate 2. Elevate heels 3. Remove boots/TEDS every shift and reapply 4. Head of bed 30 degrees as tolerated 5. Assess nutrition and hydration 6. Manage moisture 7. Avoid the use of containment devices while in bed 8. Use absorptive products on surfaces limit layers of linens on bed 9. Turn and reposition every 1-2 hours in bed and every 1 hour in chair as tolerated 10. Weight shifts every 15 minutes while up in chair 11. Offloading with pillows or device to keep heels elevated off bed 12. Monitor skin at least every shift 13. Inspect under medical devices twice a day WOUND TREATMENT RECOMMENDATIONS: CONTINUE CURRENT ORDERS.
--- NOTE | 2019-11-27 07:35 | NUR ---
TO OR VIA BED WITH OR STAFF. STABLE. NO VOICED C/O AT THIS ITME.
--- NOTE | 2019-11-27 07:46 | NUR ---
OFF FLOOR FOR BRONCH.
[2019-11-27 07:50] LABS: BASO # 0.1 10*3/uL (0.0-0.1); BASO % 0.5 % (0.0-1.0); EOS # 0.2 10*3/uL (0.0-0.4); HEMATOCRIT 30.8 % (42.0-52.0); HEMOGLOBIN 8.9 g/dl (14.0-18.0); LYMPH # 1.1 10*3/uL (1.3-4.4); LYMPH % 11.3 % (27.0-41.0); MEAN CELL VOLUME 103.4 fl (80.0-94.0); MEAN CORPUSCULAR HGB 29.9 pg (27.0-31.0); MEAN CORPUSCULAR HGB CONC 28.9 g/dl (33.0-37.0); MEAN PLATELET VOLUME 10.2 fl (9.6-12.3); MONO # 0.6 10*3/uL (0.1-1.0); MONO % 5.8 % (3.0-9.0); NEUT # 7.9 10*3/uL (2.3-7.9); NEUT % 79.9 % (47.0-73.0); PLATELET COUNT AUTOMATED 435 10*3/uL (130-400); RED BLOOD COUNT 2.98 10*6/uL (4.50-5.90); RED CELL DISTRI WIDTH 14.6 % (0-14.5); WHITE BLOOD COUNT 9.9 10*3/uL (4.8-10.8)
[2019-11-27 08:05] LABS: ALBUMIN 2.3 gm/dl (3.1-4.5); ALKALINE PHOSPHATASE 88 U/L (45-117); BUN 10 mg/dl (7-24); CHLORIDE 95 mmol/L (98-107); CREATININE 0.62 mg/dL (0.70-1.30); POTASSIUM 4.3 mmol/L (3.5-5.1); SGOT/AST 28 IU/L (3-35); SGPT/ALT 35 U/L (12-78); SODIUM 138 mmol/L (136-145)
--- NOTE | 2019-11-27 08:06 | NUR ---
OT NOTE PATIENT OUT OF ROOM FOR PROCEDURE. WILL TRY BACK LATER TIME/DATE. BRENDA RICE/Dana
--- NOTE | 2019-11-27 08:30 | NUR ---
PT GIVEN LR. CERTIFIED INDUSTRIAL HYGIENIST APPROVED OF FLUIDS.
--- NOTE | 2019-11-27 09:00 | NUR ---
case mangement visits with patient, patient will be having a bronch today, precert for [facility] will need restarted due to patient not being discharged over the weekend, cyber intel planner will send more clinicals to [facility] to restart precert
--- NOTE | 2019-11-27 09:24 | NUR ---
REPORT CALLED FROM DAVID SNOW FOLLOWING BRONCH. AWAITING PT ARRIVAL BACK TO FLOOR.
--- NOTE | 2019-11-27 09:43 | NUR ---
BACK TO ROOM FOLLOWING BRONCH.
--- NOTE | 2019-11-27 10:00 | NUR ---
PT IN ROOM RESTING AFTER PROCEDURE. ASSESSMENT COMPLETED AND DOCUMENTED. PT DROWSY, BUT AWAKENS EASILY WITH PHYSICAL STIMULATION. PT SHOWS NO SIGNS OF DISTRESS. HAS A MOIST NONPRODUCTIVE COUGH. DENIES SOB OR PAIN AT THIS TIME. BREAKFAST WAS OFFERED TO PT UPON RETURNING TO FLOOR. PT DECLINED. EDIN CANTRELLCC
--- NOTE | 2019-11-27 10:55 | NUR ---
PHYSICAL THERAPY Patient seen this am 1;1 for therapy visit and was resting supine in bed upon therapist arrival. Patient identified by name / and presented with continuos O2-6L hi flow via NC, IV treatment, R foot wound vac and B heel protectors. Patient reports mild 3/10 R foot pain at rest and was joined by OT law office assistant for observation only this session. Patient transfers supine to sit EOB with MIN A, taking a minute or so to fully collect himself. Patient educated on NWB status R LE secondary to physician order and wound vac. Patient performed sit to stand transfer, MIN A, use of wh walker standing support, tolerating < 40 seconds static stand. Patient completed several standing ex, followed by SPT to bedside chair, wh walker, MIN A, demonstrating increased difficulty maintaining NWB on R LE and with safe walker step sequence. Patient only 60% compliant with NWB status including multiple v/c's to keep R foot off floor. Patient also needed v/c for proper hand placemnt in both standing / sitting and remained in bedside chair with call light,tray table, telephone, B heel protectors and body alarm for safety. Will continue per POC as tolerated, total treatment time 16 minutes. Jose Zurita, ELECTRIC POWER LINE REPAIRER
--- NOTE | 2019-11-27 11:26 | NUR ---
Patients wound vac is on site at [facility]. They are checking to see if authorization is still good from over the weekend.
--- NOTE | 2019-11-27 11:48 | NUR ---
Patient was seen for 1:1 OT treatment this date. Upon arrival Patient was side lying in bed on L side. Patients bedding and gown were wet as he was incontinent of urine. Patient was assisted to EOB Mod Ax2. While seated eob patient combed hair and washed UB with washcloth, he required set up assist to perform these ADLs. Patient was transferred to [facility] with MOD Ax2 with max v/c to not WB through RLE, he was instructed to instead distrubute weight through devan UE's and LLE with 50% compliance. Patient perfomed static standing balance activity x2 for 40 seconds each, he again was instructed to not bear weight through RLE with poor compliance. Tray table and call light were placed within patients reach, bed alarm attached and patient was on 6L high flow O2. Continue POC. KRYSTAL Cotto/Maryanne
--- NOTE | 2019-11-27 12:00 | NUR ---
PT IN ROOM SITTING UP IN CHAIR. VOICE NO COMPLAINTS. PATIENT KEPT FALLING A SLEEP IN BETWEEN TALKING. HE STATES THAT HE HAS BEEN DOING IT FOR THE LAST FEW MONTHS. HE DENIES CONTINUOUS PAIN PATIENT MENTIONED THAT HE HAS PAIN "SHOOTING THROUGH HIS FEET" THAT OCCURS SPORADICALLY. PICC LINE DRESSING CHANGED, ASYMPTOMATIC, PT TOLERATED WELL. EDIN LANDIS
--- NOTE | 2019-11-27 13:35 | NUR ---
PT LAYING IN BED WATCHING TV. PT DENIES SOB, CHEST PAIN OR DISCOMFORT. VITALS DOCUMENTED AND STABLE. REPORT GIVEN TO TIMMY JESUS SPVICKCC
--- NOTE | 2019-11-27 19:15 | NUR ---
PT RESTING IN BED. ASSESSMENT COMPLETE. 6L HIGH FLOW O2 INTACT. PT DENIES SOB AT REST. RESPIRATIONS EASY AND REGULAR. NO COMPLAINTS AT THIS TIME. CALL LIGHT WITHIN REACH. WILL CONTINUE TO MONITOR.
[2019-11-28] VITALS: BP 122/50; BP 127/37
--- NOTE | 2019-11-28 05:55 | NUR ---
PTS WOUND VAC ALARMING AND SAY LEAK DETECTED.
--- NOTE | 2019-11-28 06:03 | NUR ---
PTS WOUND VAC SAYING LEAK DETECTED/ RESIDENT NOTIFIED AND STATES SHE WILL BE HERE SOON.
--- NOTE | 2019-11-28 07:16 | NUR ---
CALLED . INFORMED OF HOSPITAL POLICY. SAID OK TO REMOVED WAOUND VAC AND PLACE DWET TO DRY DRSG UNTIL PODIATRY CAN COME TO RE-DRESS.
--- NOTE | 2019-11-28 07:42 | NUR ---
PT NOT ON BIPAP AT THIS TIME
--- NOTE | 2019-11-28 07:42 | NUR ---
WOUND VAC REMOVED AND WOUNDS GENTLY CLEANSED WITH NSS. WET TO DRY DRSG PLACED. TOLERATED WELL.
--- NOTE | 2019-11-28 07:56 | NUR ---
Patient updated clinicals and therapy notes faxed to [facility] to restart precert again. Wound vac on site. Waiting on auth
[2019-11-28 08:00] VITALS: BP 131/59
[2019-11-28 08:03] LABS: BASO % 0.4 % (0.0-1.0); EOS # 0.3 10*3/uL (0.0-0.4); EOS % 2.5 % (1.0-4.0); HEMATOCRIT 31.8 % (42.0-52.0); HEMOGLOBIN 9.3 g/dl (14.0-18.0); LYMPH # 1.3 10*3/uL (1.3-4.4); LYMPH % 11.7 % (27.0-41.0); MEAN CELL VOLUME 102.3 fl (80.0-94.0); MEAN CORPUSCULAR HGB 29.9 pg (27.0-31.0); MEAN CORPUSCULAR HGB CONC 29.2 g/dl (33.0-37.0); MEAN PLATELET VOLUME 10.1 fl (9.6-12.3); MONO # 0.6 10*3/uL (0.1-1.0); MONO % 5.8 % (3.0-9.0); NEUT # 8.5 10*3/uL (2.3-7.9); NEUT % 79.2 % (47.0-73.0); PLATELET COUNT AUTOMATED 459 10*3/uL (130-400); RED BLOOD COUNT 3.11 10*6/uL (4.50-5.90); RED CELL DISTRI WIDTH 14.9 % (0-14.5); WHITE BLOOD COUNT 10.7 10*3/uL (4.8-10.8)
--- NOTE | 2019-11-28 08:10 | NUR ---
Occupational therapy orders received. Patient is currently on caseload, no change in medical or functional status. Continue with POC. Thank you. Flores Olgesby OTR/L
[2019-11-28 08:24] LABS: BUN 8 mg/dl (7-24); CHLORIDE 95 mmol/L (98-107); CREATININE 0.63 mg/dL (0.70-1.30); POTASSIUM 4.2 mmol/L (3.5-5.1); SODIUM 136 mmol/L (136-145)
--- NOTE | 2019-11-28 09:00 | NUR ---
case management visits with patient, he will go to [facility] when precert has been obtained and patient is medically stable, case management will follow
--- NOTE | 2019-11-28 09:10 | NUR ---
OT NOTE Pt was seen this A.M. 1:1 for 20 minute OT session. Upon arrival pt was supine in bed. Pt identified by name and and had complaints of 1/10 R foot pain. Pt presented to therapy with continuous 6L-O2 via NC which he remained on throughout the entire session. Pt transferred supine to sit EOB with Edelmira for assist with UB. While sitting EOB requested for pt to segundo B socks and pt reported that he was unable due to being unable to reach. Educated pt on compensatory techniques and pt was unable to complete as well resulting in maxA for donning of B socks. Pt was educated and able to verbalize NWB to RLE prior to standing. Pt completed sit to stand from bed level with Edelmira and use of w/w for UE support. Functional mobility was then completed to the bathroom with CGA and use of w/w. Throughout pt was provided with constant verbal, visual, and tactile prompts for maintaining NWB to RLE and pt was 100% non compliant. Pt then stood sink side while washing his hands and face with CGA for safety, pt continued to be non compliant with NWB status. Functional mobility was then completed back to the EOB where he transferred sit to supine with Edelmira for assist with BLE's. There he was left with call light in hand, tray table in place, and bed alarm activated for safety. Continue with rec D/C plan to SNF. MICHELLE Foss
--- NOTE | 2019-11-28 10:40 | NUR ---
PHYSICAL THERAPY TREATMENT TIME: 08:50 AM - 09:12 AM 22 MINUTES Patient presented to therapy in supine with 5/10 pain in the R HEEL. Patient is NWB on R LE and WBAT L LE. Patient gives informed consent for treatment. Patient was identified by name and on wristband. Patient is on 6 liters of spO2 VIA NASAL CANULA. Patient transferred supine to sitting on EOB with SBA. Patient sat on EOB with SBA. Patient sit to stand from EOB CGA X 1. Patient ambulated with Wh Walker and CGA X 1 for 25' x 1 and NON- COMPLIANCE with the R LE NWB STATUS. Patient was verbal cued and even given visual demonstrations for proper technique for NWB ON R LE. Patient performed transferred back to supine in bed with MIN A X 1. Patient was left in supine in bed with head of bed elevated, call light within reach and bed alarm activated. Patient was 1:1 with this RUBBER GASKET INSPECTOR TRIMMER for 22 minutes total. ANGELO ROSS RUBBER GASKET INSPECTOR TRIMMER
--- NOTE | 2019-11-28 11:13 | NUR ---
Nutritional Support Services Note: Pt is consuming 100% of meals. Receiving Glucerna TID w/ meals and a high protein night time snack. Staff to continue to encourage good PO intakes. GEOVANNI Mckeon improvement intern
[2019-11-28 12:00] VITALS: BP 117/42
--- NOTE | 2019-11-28 12:24 | NUR ---
PER PODIATRY DRSGS TO BILAT LEGS ARE TO NOT BE REMOVED FOR WOUND CARE PICS/MEASUREMENTS FOR DISCHARGE. DRSGS WERE PLACED TODAY.
--- NOTE | 2019-11-28 13:05 | NUR ---
Patient is discharged to [facility] via [facility] ambulance at 4PM. NH, nursing/ward attendant notified. Attemtped to notify , unable to contact, left voice message.
--- NOTE | 2019-11-28 14:39 | NUR ---
REFUSED DISCAHRGE PICS/MEASUREMENTS OF FACILE WOUNDS.
--- NOTE | 2019-11-28 15:41 | NUR ---
NURSE TO NURSE REPORT GIVEN TO RN AT [facility].
[2019-11-28 16:07] LABS: ACID FAST SPEC PROCESSING Concentration (.)
--- NOTE | 2019-11-28 16:30 | NUR ---
Discharge instructions reviewed with patient/family. Patient receptive and verbalizes understanding. Follow-up care arranged. Written instructions given to patient/family. TIMMY LOYA
--- NOTE | 2019-11-29 07:40 | NUR ---
OCCUPATIONAL THERAPY CO-SIGN I approve of the Occupational Therapy notes written above. ELY GONZALEZ, OTR/L
--- NOTE | 2019-11-29 09:47 | NUR ---
PHYSICAL THERAPY CO-SIGN I approve of the Physical Therapy notes written above. Lydia Rosa PT
== END 2019-11-28 16:30 | disposition other institution (70) | DRG 853 ==
LOC: ED 15:35 → EDHOLD 18:27 → 4E 18:27 → 5E 11-25 18:20 → 4E 11-25 19:19
PROVIDERS: Family Medicine; Hospitalist; Internal Medicine; Internal Medicine Critical Care Medicine; Physician Assistant; Podiatrist; ADMIT Family Medicine
PROC: 5A09357 Assistance with Respiratory Ventilation, Less than 24 Consecutive Hours, Continuous Positive Airway Pressure (ICD-10-PCS; principal; 2019-11-20)
PROC: 5A09357 Assistance with Respiratory Ventilation, Less than 24 Consecutive Hours, Continuous Positive Airway Pressure (ICD-10-PCS; 2019-11-21)
PROC: 0QBL0ZZ Excision of Right Tarsal, Open Approach (ICD-10-PCS; 2019-11-22)
PROC: 0QBQ0ZX Excision of Right Toe Phalanx, Open Approach, Diagnostic (ICD-10-PCS; 2019-11-22)
PROC: 0HRMXK3 Replacement of Right Foot Skin with Nonautologous Tissue Substitute, Full Thickness, External Approach (ICD-10-PCS; 2019-11-22)
PROC: 0QBL0ZX Excision of Right Tarsal, Open Approach, Diagnostic (ICD-10-PCS; 2019-11-22)
PROC: 02HV33Z Insertion of Infusion Device into Superior Vena Cava, Percutaneous Approach (ICD-10-PCS; 2019-11-22)
PROC: 0QBQ0ZZ Excision of Right Toe Phalanx, Open Approach (ICD-10-PCS; 2019-11-22)
PROC: 5A09357 Assistance with Respiratory Ventilation, Less than 24 Consecutive Hours, Continuous Positive Airway Pressure (ICD-10-PCS; 2019-11-22)
PROC: 5A09357 Assistance with Respiratory Ventilation, Less than 24 Consecutive Hours, Continuous Positive Airway Pressure (ICD-10-PCS; 2019-11-23)
PROC: 0BC28ZZ Extirpation of Matter from Carina, Via Natural or Artificial Opening Endoscopic (ICD-10-PCS; 2019-11-27)
PROC: 0BC38ZZ Extirpation of Matter from Right Main Bronchus, Via Natural or Artificial Opening Endoscopic (ICD-10-PCS; 2019-11-27)
PROC: 0BC58ZZ Extirpation of Matter from Right Middle Lobe Bronchus, Via Natural or Artificial Opening Endoscopic (ICD-10-PCS; 2019-11-27)
PROC: 0BC78ZZ Extirpation of Matter from Left Main Bronchus, Via Natural or Artificial Opening Endoscopic (ICD-10-PCS; 2019-11-27)
PROC: 0BC48ZZ Extirpation of Matter from Right Upper Lobe Bronchus, Via Natural or Artificial Opening Endoscopic (ICD-10-PCS; 2019-11-27)
PROC: 0BC68ZZ Extirpation of Matter from Right Lower Lobe Bronchus, Via Natural or Artificial Opening Endoscopic (ICD-10-PCS; 2019-11-27)
PROC: 0BC18ZZ Extirpation of Matter from Trachea, Via Natural or Artificial Opening Endoscopic (ICD-10-PCS; 2019-11-27)
PROC: 0BC98ZZ Extirpation of Matter from Lingula Bronchus, Via Natural or Artificial Opening Endoscopic (ICD-10-PCS; 2019-11-27)
PROC: 0BCB8ZZ Extirpation of Matter from Left Lower Lobe Bronchus, Via Natural or Artificial Opening Endoscopic (ICD-10-PCS; 2019-11-27)
PROC: 0BC88ZZ Extirpation of Matter from Left Upper Lobe Bronchus, Via Natural or Artificial Opening Endoscopic (ICD-10-PCS; 2019-11-27)
DX: A41.9 Sepsis, unspecified organism (principal); E43 Unspecified severe protein-calorie malnutrition; J96.21 Acute and chronic respiratory failure with hypoxia; J96.22 Acute and chronic respiratory failure with hypercapnia; I50.33 Acute on chronic diastolic (congestive) heart failure; L97.419 Non-pressure chronic ulcer of right heel and midfoot with unspecified severity; Z68.43 Body mass index [BMI] 50.0-59.9, adult; E11.52 Type 2 diabetes mellitus with diabetic peripheral angiopathy with gangrene; I96 Gangrene, not elsewhere classified; J44.1 Chronic obstructive pulmonary disease with (acute) exacerbation; E87.3 Alkalosis; E11.621 Type 2 diabetes mellitus with foot ulcer; R65.20 Severe sepsis without septic shock; X08.8XXA Exposure to other specified smoke, fire and flames, initial encounter; T20.00XA Burn of unspecified degree of head, face, and neck, unspecified site, initial encounter; D53.1 Other megaloblastic anemias, not elsewhere classified; D47.3 Essential (hemorrhagic) thrombocythemia; E87.8 Other disorders of electrolyte and fluid balance, not elsewhere classified; E83.41 Hypermagnesemia; E78.5 Hyperlipidemia, unspecified; I11.0 Hypertensive heart disease with heart failure; E53.8 Deficiency of other specified B group vitamins; E11.65 Type 2 diabetes mellitus with hyperglycemia; I87.8 Other specified disorders of veins; J98.09 Other diseases of bronchus, not elsewhere classified; I48.0 Paroxysmal atrial fibrillation; E11.69 Type 2 diabetes mellitus with other specified complication; E66.01 Morbid (severe) obesity due to excess calories; J20.9 Acute bronchitis, unspecified; I25.10 Atherosclerotic heart disease of native coronary artery without angina pectoris; G47.33 Obstructive sleep apnea (adult) (pediatric); F17.200 Nicotine dependence, unspecified, uncomplicated; B96.1 Klebsiella pneumoniae [K. pneumoniae] as the cause of diseases classified elsewhere; B95.2 Enterococcus as the cause of diseases classified elsewhere; Z53.9 Procedure and treatment not carried out, unspecified reason; Z71.6 Tobacco abuse counseling; Y93.89 Activity, other specified; Y92.89 Other specified places as the place of occurrence of the external cause; Y99.8 Other external cause status; Z79.01 Long term (current) use of anticoagulants; Z88.6 Allergy status to analgesic agent; Z79.899 Other long term (current) drug therapy; Z79.4 Long term (current) use of insulin

== ENCOUNTER → 2020-01-10 | Day surgery (SDC) | payer OTHER, MEDICARE ==
[~2020-01-10] VITALS: Ht 165.1 cm; Wt 110.7 kg
[~2020-01-10] MED LIST changes: +CARVEDILOL12.5 MG PO; +CEFEPIME2 GM/100 M IV; +DOXYCYCLINE100 M3 PO; +METRONIDAZOLE500 M1 PO; +NORCO 5-325 TA1 EACH PO; +TRAMADOL HCL50 MG PO; +XARELTO10 MG PO
[2020-01-10 09:36] VITALS: BP 141/58
[2020-01-10 10:30] VITALS: BP 116/57
[2020-01-10 10:45] VITALS: BP 114/69
[2020-01-10 11:00] VITALS: BP 145/69
--- NOTE | 2020-01-10 11:05 | NUR ---
IV CATHETER REMOVED INTACT
[2020-01-11 12:08] LABS: ACID FAST SPEC PROCESSING Tissue Grinding (.)
== END | disposition home or self-care (01) ==
LOC: SDC 01-05 09:30
PROVIDERS: Podiatrist Foot & Ankle Surgery
DX: E11.621 Type 2 diabetes mellitus with foot ulcer (principal); I11.0 Hypertensive heart disease with heart failure; I50.33 Acute on chronic diastolic (congestive) heart failure; F41.9 Anxiety disorder, unspecified; E78.2 Mixed hyperlipidemia; E55.9 Vitamin D deficiency, unspecified; I48.91 Unspecified atrial fibrillation; E11.9 Type 2 diabetes mellitus without complications; F32.9 Major depressive disorder, single episode, unspecified; L97.528 Non-pressure chronic ulcer of other part of left foot with other specified severity; J44.9 Chronic obstructive pulmonary disease, unspecified; I87.2 Venous insufficiency (chronic) (peripheral); E66.01 Morbid (severe) obesity due to excess calories; Z68.41 Body mass index [BMI] 40.0-44.9, adult; Z79.899 Other long term (current) drug therapy

== ENCOUNTER → 2020-02-15 | Day surgery (SDC) | payer OTHER, MEDICARE ==
[~2020-02-15] VITALS: Ht 165.1 cm; Wt 110.2 kg
[~2020-02-15] MED LIST changes: +CIPROFLOXACIN500 M4 PO; +DOXYCYCLINE HY100 M3 PO; +GOOD NEIGHBOR L10 MG PO
[2020-02-15 12:21] VITALS: BP 140/67
[2020-02-15 14:13] VITALS: BP 124/62
[2020-02-15 14:26] VITALS: BP 141/56
[2020-02-15 14:40] VITALS: BP 146/59
[2020-02-15 15:10] VITALS: BP 158/63
[2020-02-17 12:04] LABS: ACID FAST SPEC PROCESSING Direct Inoculation (.)
== END | disposition home or self-care (01) ==
LOC: SDC 02-13 09:30
PROVIDERS: Podiatrist Foot & Ankle Surgery
DX: E11.621 Type 2 diabetes mellitus with foot ulcer (principal); I10 Essential (primary) hypertension; E78.00 Pure hypercholesterolemia, unspecified; J43.9 Emphysema, unspecified; I25.10 Atherosclerotic heart disease of native coronary artery without angina pectoris; I11.0 Hypertensive heart disease with heart failure; I50.9 Heart failure, unspecified; E11.9 Type 2 diabetes mellitus without complications; F41.9 Anxiety disorder, unspecified; F32.9 Major depressive disorder, single episode, unspecified; Z98.890 Other specified postprocedural states; Z87.891 Personal history of nicotine dependence; Z79.899 Other long term (current) drug therapy

== ENCOUNTER 2020-11-18 13:30 | Inpatient (IN) | payer OTHER, MEDICARE ==
[~2020-11-18] VITALS: Ht 175.2 cm; Wt 132.8 kg
[2020-11-18] VITALS (39 sets, daily range): BP systolic 50–158; BP diastolic 24–102
[2020-11-18 14:22] LABS: ABG BASE EXCESS 3.1 mmol/L (-2.0-2.0); ARTERIAL BLOOD GAS PH 7.23 (7.35-7.45)
[2020-11-18 14:52] LABS: BASO % 0.6 % (0.0-1.0); EOS % 1.3 % (1.0-4.0); HEMATOCRIT 38.6 % (42.0-52.0); LYMPH # 0.3 10*3/uL (1.3-4.4); LYMPH % 10.1 % (27.0-41.0); MEAN CELL VOLUME 98.2 fl (80.0-94.0); MEAN CORPUSCULAR HGB CONC 29.5 g/dl (33.0-37.0); MEAN PLATELET VOLUME 9.7 fl (9.6-12.3); NEUT # 2.7 10*3/uL (2.3-7.9); NEUT % 86.4 % (47.0-73.0); NUCLEATED RED BLOOD CELL 0.6 % (0.0-0.0); PLATELET COUNT AUTOMATED 518 10*3/uL (130-400); RED BLOOD COUNT 3.93 10*6/uL (4.50-5.90); RED CELL DISTRI WIDTH 14.4 % (0-14.5); WHITE BLOOD COUNT 3.1 10*3/uL (4.8-10.8)
[2020-11-18 15:02] LABS: ACT PARTIAL THROMBO TIME 24.5 SECONDS (20.0-32.1)
[2020-11-18 15:25] LABS: ALBUMIN 3.3 gm/dl (3.1-4.5); ALKALINE PHOSPHATASE 218 U/L (45-117); BUN 28 mg/dl (7-24); CHLORIDE 101 mmol/L (98-107); LIPASE 58 U/L (73-393); POTASSIUM 3.8 mmol/L (3.5-5.1); SGOT/AST 48 IU/L (3-35); SGPT/ALT 27 U/L (12-78); SODIUM 138 mmol/L (136-145); TOTAL PROTEIN 7.7 gm/dL (6.4-8.2)
[2020-11-18 15:27] LABS: TROPONIN I < 0.015 ng/ml (<0.045)
[2020-11-18 16:36] LABS: BILIRUBIN Negative (Negative); BLOOD 2+ (Negative); CLARITY Cloudy (Clear); COLOR Yellow (Yellow); GLUCOSE Negative (Negative); KETONE Negative (Negative); LEUKO ESTERASE 3+ (Negative); NITRITE Negative (Negative); SPECIFIC GRAVITY 1.015 (1.001-1.030); UROBILINOGEN 0.2 E.U./dl (0.0-1.0)
[2020-11-18 16:48] LABS: BACTERIA 2+; RBC 51-100 rbc/hpf (0-2); WBC TNTC wbc/hpf (0-5)
[2020-11-18] MEDS ORDERED: ALBUTEROL0.63 MG/3 NEB (17:19)
[2020-11-18] MEDS ORDERED: VITAMIN D350 MC2 PO (17:22)
[2020-11-18 17:26] LABS: ABG BASE EXCESS 3.1 mmol/L (-2.0-2.0); ARTERIAL BLOOD GAS PH 7.269 (7.35-7.45)
[2020-11-18 19:55] LABS: ABG BASE EXCESS 3.6 mmol/L (-2.0-2.0); ARTERIAL BLOOD GAS PH 7.289 (7.35-7.45)
[2020-11-18 21:59] LABS: ABG BASE EXCESS 2.2 mmol/L (-2.0-2.0); ARTERIAL BLOOD GAS PH 7.301 (7.35-7.45)
[2020-11-19] VITALS (96 sets, daily range): BP systolic 89–173; BP diastolic 44–74
[2020-11-19 05:01] LABS: ALBUMIN 2.3 gm/dl (3.1-4.5); CREATININE 2.39 mg/dL (0.70-1.30); POTASSIUM 4.2 mmol/L (3.5-5.1)
[2020-11-19 05:11] LABS: FREE T4 1.27 ng/dl (0.76-1.46); THYROID STIM HORMONE (HS) 1.43 uIU/ml (0.358-4.75)
[2020-11-19 06:15] LABS: HEMATOCRIT 32.7 % (42.0-52.0); MEAN CELL VOLUME 98.5 fl (80.0-94.0); MEAN CORPUSCULAR HGB 30.1 pg (27.0-31.0); MEAN CORPUSCULAR HGB CONC 30.6 g/dl (33.0-37.0); MEAN PLATELET VOLUME 10.8 fl (9.6-12.3); NUCLEATED RED BLOOD CELL 0.1 10*3/uL (0.0-0.0); NUCLEATED RED BLOOD CELL 0.2 % (0.0-0.0); PLATELET COUNT AUTOMATED 428 10*3/uL (130-400); RED BLOOD COUNT 3.32 10*6/uL (4.50-5.90); RED CELL DISTRI WIDTH 14.9 % (0-14.5); WHITE BLOOD COUNT 25.7 10*3/uL (4.8-10.8)
[2020-11-19 06:46] LABS: PLATELET SUFFICIENCY HIGH (NORMAL); TOTAL CELLS COUNTED 100 #CELLS
[2020-11-19 07:35] LABS: ABG BASE EXCESS -1.4 mmol/L (-2.0-2.0); ARTERIAL BLOOD GAS PH 7.297 (7.35-7.45)
[2020-11-19 07:36] LABS: FERRITIN 144.9 ng/mL (22.0-322.0)
[2020-11-19 09:11] LABS: INTERNATIONAL NORM RATIO 1.2 (2.0-3.5)
[2020-11-19 09:21] LABS: ACT PARTIAL THROMBO TIME 33.2 SECONDS (20.0-32.1)
[2020-11-20] VITALS (53 sets, daily range): BP systolic 93–151; BP diastolic 51–69
[2020-11-20 05:56] LABS: ALBUMIN 2.1 gm/dl (3.1-4.5); CREATININE 1.6 mg/dL (0.70-1.30); POTASSIUM 3.4 mmol/L (3.5-5.1); TOTAL PROTEIN 6.1 gm/dL (6.4-8.2)
[2020-11-20 07:28] LABS: ABG BASE EXCESS -2.5 mmol/L (-2.0-2.0); ARTERIAL BLOOD GAS PH 7.252 (7.35-7.45)
[2020-11-20 07:30] LABS: HEMATOCRIT 31.2 % (42.0-52.0); MEAN CELL VOLUME 98.1 fl (80.0-94.0); MEAN CORPUSCULAR HGB 29.9 pg (27.0-31.0); MEAN CORPUSCULAR HGB CONC 30.4 g/dl (33.0-37.0); MEAN PLATELET VOLUME 10.2 fl (9.6-12.3); RED BLOOD COUNT 3.18 10*6/uL (4.50-5.90); RED CELL DISTRI WIDTH 15.1 % (0-14.5); WHITE BLOOD COUNT 17.6 10*3/uL (4.8-10.8)
[2020-11-20 07:32] LABS: PLATELET COUNT AUTOMATED 242 10*3/uL (130-400)
[2020-11-20 08:10] LABS: DOHLE BODIES FEW; PLATELET SUFFICIENCY NORMAL (NORMAL); TOTAL CELLS COUNTED 100 #CELLS; TOXIC GRANULATION SLIGHT
[2020-11-20 08:11] LABS: POLYCHROMASIA SLIGHT
[2020-11-20 13:40] LABS: ABG BASE EXCESS 0.9 mmol/L (-2.0-2.0); ARTERIAL BLOOD GAS PH 7.338 (7.35-7.45)
[2020-11-20 16:18] LABS: ABG BASE EXCESS 1.5 mmol/L (-2.0-2.0); ARTERIAL BLOOD GAS PH 7.32 (7.35-7.45)
[2020-11-20 18:45] LABS: ABG BASE EXCESS 2.2 mmol/L (-2.0-2.0); ARTERIAL BLOOD GAS PH 7.32 (7.35-7.45)
[2020-11-21] VITALS: BP 112/68
[2020-11-21 04:00] VITALS: BP 127/72
[2020-11-21 05:12] LABS: ALBUMIN 2.2 gm/dl (3.1-4.5); BUN 33 mg/dl (7-24); CHLORIDE 114 mmol/L (98-107); CREATININE 1.17 mg/dL (0.70-1.30); POTASSIUM 3.8 mmol/L (3.5-5.1); SGOT/AST 76 IU/L (3-35); SGPT/ALT 85 U/L (12-78); SODIUM 146 mmol/L (136-145); TOTAL PROTEIN 6.1 gm/dL (6.4-8.2)
[2020-11-21 05:13] LABS: ALKALINE PHOSPHATASE 96 U/L (45-117)
[2020-11-21 06:09] LABS: HEMATOCRIT 28.6 % (42.0-52.0); MEAN CORPUSCULAR HGB 29.4 pg (27.0-31.0); MEAN CORPUSCULAR HGB CONC 29.4 g/dl (33.0-37.0); MEAN PLATELET VOLUME 11.1 fl (9.6-12.3); PLATELET COUNT AUTOMATED 204 10*3/uL (130-400); RED BLOOD COUNT 2.86 10*6/uL (4.50-5.90); WHITE BLOOD COUNT 11.1 10*3/uL (4.8-10.8)
[2020-11-21 06:50] LABS: DOHLE BODIES FEW; OVALOCYTES FEW; PLATELET SUFFICIENCY NORMAL (NORMAL); POLYCHROMASIA SLIGHT; TOTAL CELLS COUNTED 100 #CELLS; TOXIC GRANULATION SLIGHT
[2020-11-21 07:53] LABS: ABG BASE EXCESS 1.4 mmol/L (-2.0-2.0); ARTERIAL BLOOD GAS PH 7.357 (7.35-7.45)
[2020-11-21 08:00] VITALS: BP 131/66
[2020-11-21 12:00] VITALS: BP 142/70
[2020-11-21 12:22] LABS: ABG BASE EXCESS 1.4 mmol/L (-2.0-2.0); ARTERIAL BLOOD GAS PH 7.284 (7.35-7.45)
[2020-11-21 16:00] VITALS: BP 114/52
[2020-11-21 20:00] VITALS: BP 124/57
[2020-11-22] VITALS (7 sets, daily range): BP systolic 119–169; BP diastolic 59–80
[2020-11-22 06:11] LABS: ALBUMIN 2.1 gm/dl (3.1-4.5); BUN 26 mg/dl (7-24); CHLORIDE 117 mmol/L (98-107); POTASSIUM 3.7 mmol/L (3.5-5.1); SODIUM 151 mmol/L (136-145)
[2020-11-22 06:14] LABS: ALKALINE PHOSPHATASE 114 U/L (45-117); CREATININE 0.96 mg/dL (0.70-1.30); SGOT/AST 39 IU/L (3-35); SGPT/ALT 57 U/L (12-78)
[2020-11-22 06:33] LABS: BASO % 0.1 % (0.0-1.0); EOS # 0.1 10*3/uL (0.0-0.4); EOS % 0.9 % (1.0-4.0); LYMPH # 1.2 10*3/uL (1.3-4.4); LYMPH % 11.1 % (27.0-41.0); MEAN CORPUSCULAR HGB 29.2 pg (27.0-31.0); MEAN PLATELET VOLUME 11.2 fl (9.6-12.3); MONO # 0.4 10*3/uL (0.1-1.0); NEUT # 8.8 10*3/uL (2.3-7.9); NEUT % 83.5 % (47.0-73.0); PLATELET COUNT AUTOMATED 192 10*3/uL (130-400); RED BLOOD COUNT 2.88 10*6/uL (4.50-5.90); RED CELL DISTRI WIDTH 14.7 % (0-14.5); WHITE BLOOD COUNT 10.5 10*3/uL (4.8-10.8)
[2020-11-22 06:46] LABS: MEAN CELL VOLUME 104.2 fl (80.0-94.0)
[2020-11-22 08:00] LABS: ARTERIAL BLOOD GAS PH 7.329 (7.35-7.45)
[2020-11-23] VITALS: BP 122/66
[2020-11-23 04:00] VITALS: BP 121/67
[2020-11-23 04:22] LABS: BASO % 0.3 % (0.0-1.0); EOS # 0.1 10*3/uL (0.0-0.4); EOS % 0.7 % (1.0-4.0); LYMPH # 1.5 10*3/uL (1.3-4.4); LYMPH % 13.6 % (27.0-41.0); MEAN CELL VOLUME 104.2 fl (80.0-94.0); MEAN CORPUSCULAR HGB 29.6 pg (27.0-31.0); MEAN CORPUSCULAR HGB CONC 28.4 g/dl (33.0-37.0); MEAN PLATELET VOLUME 11.5 fl (9.6-12.3); MONO # 0.5 10*3/uL (0.1-1.0); MONO % 4.7 % (3.0-9.0); NEUT # 8.6 10*3/uL (2.3-7.9); NEUT % 79.9 % (47.0-73.0); PLATELET COUNT AUTOMATED 195 10*3/uL (130-400); RED BLOOD COUNT 3.07 10*6/uL (4.50-5.90); RED CELL DISTRI WIDTH 14.5 % (0-14.5); WHITE BLOOD COUNT 10.7 10*3/uL (4.8-10.8)
[2020-11-23 04:53] LABS: ALBUMIN 2.1 gm/dl (3.1-4.5); ALKALINE PHOSPHATASE 130 U/L (45-117); BUN 24 mg/dl (7-24); CHLORIDE 116 mmol/L (98-107); CREATININE 0.98 mg/dL (0.70-1.30); POTASSIUM 3.6 mmol/L (3.5-5.1); SGOT/AST 33 IU/L (3-35); SGPT/ALT 46 U/L (12-78); SODIUM 152 mmol/L (136-145); TOTAL PROTEIN 6.1 gm/dL (6.4-8.2)
[2020-11-23 07:24] LABS: ABG BASE EXCESS 3.2 mmol/L (-2.0-2.0); ARTERIAL BLOOD GAS PH 7.368 (7.35-7.45)
[2020-11-23 08:00] VITALS: BP 105/50
[2020-11-23 12:00] VITALS: BP 138/70
[2020-11-23 16:00] VITALS: BP 130/80
[2020-11-23 16:34] LABS: ABG BASE EXCESS 3.6 mmol/L (-2.0-2.0); ARTERIAL BLOOD GAS PH 7.341 (7.35-7.45)
[2020-11-23 19:23] LABS: ARTERIAL BLOOD GAS PH 7.346 (7.35-7.45)
[2020-11-23 19:51] VITALS: BP 124/50
[2020-11-23 23:37] LABS: ABG BASE EXCESS 4.7 mmol/L (-2.0-2.0); ARTERIAL BLOOD GAS PH 7.311 (7.35-7.45)
[2020-11-24] VITALS: BP 140/57
[2020-11-24 04:00] VITALS: BP 156/59
[2020-11-24 05:44] LABS: BUN 26 mg/dl (7-24); CHLORIDE 114 mmol/L (98-107); CREATININE 0.85 mg/dL (0.70-1.30); POTASSIUM 3.7 mmol/L (3.5-5.1); SODIUM 151 mmol/L (136-145)
[2020-11-24 06:05] LABS: BASO % 0.2 % (0.0-1.0); EOS # 0.2 10*3/uL (0.0-0.4); EOS % 2.6 % (1.0-4.0); HEMATOCRIT 31.4 % (42.0-52.0); LYMPH # 1.3 10*3/uL (1.3-4.4); LYMPH % 14.2 % (27.0-41.0); MEAN CELL VOLUME 104.7 fl (80.0-94.0); MEAN CORPUSCULAR HGB 29.3 pg (27.0-31.0); MEAN PLATELET VOLUME 11.8 fl (9.6-12.3); MONO # 0.4 10*3/uL (0.1-1.0); MONO % 4.7 % (3.0-9.0); NEUT # 6.9 10*3/uL (2.3-7.9); NEUT % 77.6 % (47.0-73.0); PLATELET COUNT AUTOMATED 205 10*3/uL (130-400); RED CELL DISTRI WIDTH 14.6 % (0-14.5); WHITE BLOOD COUNT 8.9 10*3/uL (4.8-10.8)
[2020-11-24 07:48] LABS: ABG BASE EXCESS 4.6 mmol/L (-2.0-2.0); ARTERIAL BLOOD GAS PH 7.325 (7.35-7.45)
[2020-11-24 08:00] VITALS: BP 161/70
[2020-11-24 11:06] LABS: ACID FAST SPEC PROCESSING Direct Inoculation (.)
[2020-11-24 12:00] VITALS: BP 154/56
[2020-11-24 16:00] VITALS: BP 155/59
[2020-11-24 20:00] VITALS: BP 122/45
[2020-11-25] VITALS: BP 144/60
[2020-11-25 04:00] VITALS: BP 133/52
[2020-11-25 05:27] LABS: ALKALINE PHOSPHATASE 94 U/L (45-117); BUN 23 mg/dl (7-24); CHLORIDE 120 mmol/L (98-107); CREATININE 0.75 mg/dL (0.70-1.30); POTASSIUM 3.9 mmol/L (3.5-5.1); SGOT/AST 23 IU/L (3-35); SGPT/ALT 31 U/L (12-78); SODIUM 158 mmol/L (136-145); TOTAL PROTEIN 5.9 gm/dL (6.4-8.2)
[2020-11-25 06:14] LABS: BASO % 0.4 % (0.0-1.0); EOS # 0.3 10*3/uL (0.0-0.4); HEMATOCRIT 31.5 % (42.0-52.0); LYMPH % 12.2 % (27.0-41.0); MEAN CELL VOLUME 106.4 fl (80.0-94.0); MEAN CORPUSCULAR HGB 29.1 pg (27.0-31.0); MEAN CORPUSCULAR HGB CONC 27.3 g/dl (33.0-37.0); MEAN PLATELET VOLUME 11.8 fl (9.6-12.3); MONO # 0.4 10*3/uL (0.1-1.0); MONO % 4.3 % (3.0-9.0); NEUT # 6.3 10*3/uL (2.3-7.9); NEUT % 78.7 % (47.0-73.0); PLATELET COUNT AUTOMATED 218 10*3/uL (130-400); RED BLOOD COUNT 2.96 10*6/uL (4.50-5.90); RED CELL DISTRI WIDTH 14.3 % (0-14.5); WHITE BLOOD COUNT 8.1 10*3/uL (4.8-10.8)
[2020-11-25 08:00] VITALS: BP 142/62
[2020-11-25 12:00] VITALS: BP 132/69
[2020-11-25 16:00] VITALS: BP 134/74
[2020-11-25 20:00] VITALS: BP 131/65
[2020-11-26] VITALS (7 sets, daily range): BP systolic 110–154; BP diastolic 52–65
[2020-11-26 06:08] LABS: ALBUMIN 2.1 gm/dl (3.1-4.5); ALKALINE PHOSPHATASE 98 U/L (45-117); BUN 19 mg/dl (7-24); CHLORIDE 119 mmol/L (98-107); CREATININE 0.76 mg/dL (0.70-1.30); POTASSIUM 3.5 mmol/L (3.5-5.1); SGOT/AST 33 IU/L (3-35); SGPT/ALT 34 U/L (12-78); SODIUM 157 mmol/L (136-145); TOTAL PROTEIN 6.3 gm/dL (6.4-8.2)
[2020-11-26 06:13] LABS: BASO % 0.4 % (0.0-1.0); EOS # 0.2 10*3/uL (0.0-0.4); EOS % 2.5 % (1.0-4.0); HEMATOCRIT 35.8 % (42.0-52.0); LYMPH # 1.1 10*3/uL (1.3-4.4); LYMPH % 11.6 % (27.0-41.0); MEAN CELL VOLUME 106.2 fl (80.0-94.0); MEAN CORPUSCULAR HGB 29.7 pg (27.0-31.0); MEAN CORPUSCULAR HGB CONC 27.9 g/dl (33.0-37.0); MEAN PLATELET VOLUME 11.4 fl (9.6-12.3); MONO # 0.4 10*3/uL (0.1-1.0); MONO % 3.7 % (3.0-9.0); NEUT # 7.9 10*3/uL (2.3-7.9); NEUT % 81.2 % (47.0-73.0); PLATELET COUNT AUTOMATED 275 10*3/uL (130-400); RED BLOOD COUNT 3.37 10*6/uL (4.50-5.90); RED CELL DISTRI WIDTH 14.1 % (0-14.5); WHITE BLOOD COUNT 9.7 10*3/uL (4.8-10.8)
[2020-11-26 09:58] LABS: ARTERIAL BLOOD GAS PH 7.379 (7.35-7.45)
[2020-11-26 18:47] LABS: BILIRUBIN Negative (Negative); BLOOD 1+ (Negative); CLARITY Clear (Clear); COLOR Yellow (Yellow); GLUCOSE 3+ (Negative); KETONE 2+ (Negative); LEUKO ESTERASE Negative (Negative); NITRITE Negative (Negative); PH 6.5 (4.5-8.0); SPECIFIC GRAVITY 1.025 (1.001-1.030); UROBILINOGEN 0.2 E.U./dl (0.0-1.0)
[2020-11-26 18:55] LABS: BACTERIA TRACE; MUCOUS TRACE; WBC 0-2 wbc/hpf (0-5)
[2020-11-27 04:00] VITALS: BP 125/51
[2020-11-27 06:08] LABS: BASO % 0.4 % (0.0-1.0); EOS # 0.2 10*3/uL (0.0-0.4); EOS % 2.9 % (1.0-4.0); HEMATOCRIT 33.6 % (42.0-52.0); LYMPH # 1.5 10*3/uL (1.3-4.4); LYMPH % 17.5 % (27.0-41.0); MEAN CORPUSCULAR HGB 29.3 pg (27.0-31.0); MEAN CORPUSCULAR HGB CONC 27.1 g/dl (33.0-37.0); MEAN PLATELET VOLUME 11.4 fl (9.6-12.3); MONO # 0.3 10*3/uL (0.1-1.0); MONO % 3.6 % (3.0-9.0); NEUT # 6.2 10*3/uL (2.3-7.9); NEUT % 75.2 % (47.0-73.0); PLATELET COUNT AUTOMATED 266 10*3/uL (130-400); RED BLOOD COUNT 3.11 10*6/uL (4.50-5.90); RED CELL DISTRI WIDTH 14.5 % (0-14.5); WHITE BLOOD COUNT 8.3 10*3/uL (4.8-10.8)
[2020-11-27 06:23] LABS: ALBUMIN 2.2 gm/dl (3.1-4.5); ALKALINE PHOSPHATASE 91 U/L (45-117); BUN 27 mg/dl (7-24); CHLORIDE 118 mmol/L (98-107); CREATININE 0.95 mg/dL (0.70-1.30); POTASSIUM 3.4 mmol/L (3.5-5.1); SGOT/AST 28 IU/L (3-35); SGPT/ALT 30 U/L (12-78); SODIUM 159 mmol/L (136-145); TOTAL PROTEIN 6.2 gm/dL (6.4-8.2)
[2020-11-27 08:00] VITALS: BP 122/42
[2020-11-27 12:00] VITALS: BP 117/52
[2020-11-27 16:00] VITALS: BP 131/85
[2020-11-27 20:00] VITALS: BP 170/66
[2020-11-28] VITALS: BP 129/45
[2020-11-28 06:39] LABS: BASO % 0.3 % (0.0-1.0); EOS # 0.2 10*3/uL (0.0-0.4); EOS % 2.3 % (1.0-4.0); HEMATOCRIT 33.7 % (42.0-52.0); LYMPH # 1.2 10*3/uL (1.3-4.4); LYMPH % 17.9 % (27.0-41.0); MEAN CELL VOLUME 107.7 fl (80.0-94.0); MEAN CORPUSCULAR HGB 29.4 pg (27.0-31.0); MEAN CORPUSCULAR HGB CONC 27.3 g/dl (33.0-37.0); MONO # 0.2 10*3/uL (0.1-1.0); MONO % 3.4 % (3.0-9.0); NEUT # 4.9 10*3/uL (2.3-7.9); NEUT % 75.6 % (47.0-73.0); PLATELET COUNT AUTOMATED 273 10*3/uL (130-400); RED BLOOD COUNT 3.13 10*6/uL (4.50-5.90); RED CELL DISTRI WIDTH 14.3 % (0-14.5); WHITE BLOOD COUNT 6.5 10*3/uL (4.8-10.8)
[2020-11-28 06:55] LABS: ALBUMIN 2.3 gm/dl (3.1-4.5); ALKALINE PHOSPHATASE 91 U/L (45-117); BUN 18 mg/dl (7-24); CHLORIDE 116 mmol/L (98-107); CREATININE 0.84 mg/dL (0.70-1.30); POTASSIUM 3.3 mmol/L (3.5-5.1); SGOT/AST 29 IU/L (3-35); SGPT/ALT 31 U/L (12-78); SODIUM 155 mmol/L (136-145); TOTAL PROTEIN 6.2 gm/dL (6.4-8.2)
[2020-11-28 08:00] VITALS: BP 127/44
[2020-11-28 12:00] VITALS: BP 152/54
[2020-11-28 16:00] VITALS: BP 154/67
[2020-11-28 20:00] VITALS: BP 124/50
[2020-11-29] VITALS: BP 145/73
[2020-11-29 06:32] LABS: BASO % 0.5 % (0.0-1.0); EOS # 0.1 10*3/uL (0.0-0.4); EOS % 2.1 % (1.0-4.0); LYMPH # 1.1 10*3/uL (1.3-4.4); LYMPH % 16.9 % (27.0-41.0); MEAN CELL VOLUME 107.8 fl (80.0-94.0); MEAN CORPUSCULAR HGB 29.7 pg (27.0-31.0); MEAN CORPUSCULAR HGB CONC 27.6 g/dl (33.0-37.0); MONO # 0.3 10*3/uL (0.1-1.0); NEUT % 76.2 % (47.0-73.0); PLATELET COUNT AUTOMATED 270 10*3/uL (130-400); RED BLOOD COUNT 3.06 10*6/uL (4.50-5.90); RED CELL DISTRI WIDTH 14.4 % (0-14.5); WHITE BLOOD COUNT 6.6 10*3/uL (4.8-10.8)
[2020-11-29 06:47] LABS: BUN 19 mg/dl (7-24); CHLORIDE 117 mmol/L (98-107); CREATININE 0.85 mg/dL (0.70-1.30); POTASSIUM 3.4 mmol/L (3.5-5.1); SODIUM 156 mmol/L (136-145)
[2020-11-29 08:00] VITALS: BP 166/61
[2020-11-29 12:00] VITALS: BP 151/65
[2020-11-29 16:00] VITALS: BP 148/60
[2020-11-29 20:00] VITALS: BP 119/89
[2020-11-30] VITALS: BP 151/68
[2020-11-30 06:21] LABS: HEMATOCRIT 35.1 % (42.0-52.0); MEAN CELL VOLUME 108.3 fl (80.0-94.0); MEAN CORPUSCULAR HGB CONC 26.8 g/dl (33.0-37.0); MEAN PLATELET VOLUME 11.3 fl (9.6-12.3); PLATELET COUNT AUTOMATED 261 10*3/uL (130-400); RED BLOOD COUNT 3.24 10*6/uL (4.50-5.90); RED CELL DISTRI WIDTH 14.3 % (0-14.5); WHITE BLOOD COUNT 6.3 10*3/uL (4.8-10.8)
[2020-11-30 06:27] LABS: ALBUMIN 2.5 gm/dl (3.1-4.5); ALKALINE PHOSPHATASE 100 U/L (45-117); BUN 18 mg/dl (7-24); CHLORIDE 122 mmol/L (98-107); CREATININE 0.74 mg/dL (0.70-1.30); POTASSIUM 3.4 mmol/L (3.5-5.1); SGOT/AST 36 IU/L (3-35); SGPT/ALT 38 U/L (12-78); SODIUM 160 mmol/L (136-145); TOTAL PROTEIN 6.7 gm/dL (6.4-8.2)
[2020-11-30 07:29] LABS: OVALOCYTES FEW; PLATELET SUFFICIENCY NORMAL (NORMAL); POLYCHROMASIA SLIGHT; ROULEAUX SLIGHT; STOMATOCYTE FEW; TOTAL CELLS COUNTED 100 #CELLS
[2020-11-30 08:00] VITALS: BP 154/68
[2020-11-30 12:00] VITALS: BP 161/74
[2020-11-30 12:20] LABS: BUN 17 mg/dl (7-24); CHLORIDE 121 mmol/L (98-107); CREATININE 0.72 mg/dL (0.70-1.30); POTASSIUM 3.6 mmol/L (3.5-5.1); SODIUM 159 mmol/L (136-145)
[2020-11-30 16:00] VITALS: BP 137/88; BP 147/76
[2020-11-30 18:49] LABS: BUN 16 mg/dl (7-24); CHLORIDE 118 mmol/L (98-107); CREATININE 0.74 mg/dL (0.70-1.30); POTASSIUM 3.4 mmol/L (3.5-5.1); SODIUM 157 mmol/L (136-145)
[2020-11-30 20:00] VITALS: BP 111/70
[2020-12-01] VITALS: BP 149/68; BP 91/55
[2020-12-01 08:00] VITALS: BP 134/70
[2020-12-01 08:00] LABS: HEMATOCRIT 35.7 % (42.0-52.0); MEAN CELL VOLUME 108.8 fl (80.0-94.0); MEAN CORPUSCULAR HGB 29.3 pg (27.0-31.0); MEAN CORPUSCULAR HGB CONC 26.9 g/dl (33.0-37.0); MEAN PLATELET VOLUME 10.6 fl (9.6-12.3); PLATELET COUNT AUTOMATED 227 10*3/uL (130-400); RED BLOOD COUNT 3.28 10*6/uL (4.50-5.90); RED CELL DISTRI WIDTH 14.5 % (0-14.5); WHITE BLOOD COUNT 5.2 10*3/uL (4.8-10.8)
[2020-12-01 08:18] LABS: ALBUMIN 2.4 gm/dl (3.1-4.5); ALKALINE PHOSPHATASE 99 U/L (45-117); BUN 14 mg/dl (7-24); CHLORIDE 118 mmol/L (98-107); CREATININE 0.75 mg/dL (0.70-1.30); POTASSIUM 3.6 mmol/L (3.5-5.1); SGOT/AST 28 IU/L (3-35); SGPT/ALT 31 U/L (12-78); SODIUM 157 mmol/L (136-145); TOTAL PROTEIN 6.4 gm/dL (6.4-8.2)
[2020-12-01 08:22] LABS: PLATELET SUFFICIENCY NORMAL (NORMAL); POLYCHROMASIA SLIGHT; STOMATOCYTE FEW; TOTAL CELLS COUNTED 100 #CELLS
[2020-12-01 12:00] VITALS: BP 124/56
[2020-12-01 16:00] VITALS: BP 132/68
[2020-12-01 16:53] LABS: BUN 13 mg/dl (7-24); CHLORIDE 117 mmol/L (98-107); CREATININE 0.64 mg/dL (0.70-1.30); POTASSIUM 3.7 mmol/L (3.5-5.1); SODIUM 154 mmol/L (136-145)
[2020-12-01 20:00] VITALS: BP 137/75
[2020-12-01 22:15] VITALS: BP 130/70
[2020-12-02 04:00] VITALS: BP 126/54
[2020-12-02 06:00] VITALS: BP 140/70
[2020-12-02 07:21] LABS: ALBUMIN 2.4 gm/dl (3.1-4.5); ALKALINE PHOSPHATASE 97 U/L (45-117); BUN 16 mg/dl (7-24); CHLORIDE 114 mmol/L (98-107); CREATININE 0.73 mg/dL (0.70-1.30); POTASSIUM 4.3 mmol/L (3.5-5.1); SGOT/AST 26 IU/L (3-35); SGPT/ALT 32 U/L (12-78); SODIUM 153 mmol/L (136-145); TOTAL PROTEIN 6.4 gm/dL (6.4-8.2)
[2020-12-02 07:24] LABS: BASO % 0.4 % (0.0-1.0); EOS % 0.4 % (1.0-4.0); HEMATOCRIT 34.7 % (42.0-52.0); LYMPH % 20.2 % (27.0-41.0); MEAN CELL VOLUME 107.4 fl (80.0-94.0); MEAN CORPUSCULAR HGB 29.4 pg (27.0-31.0); MEAN CORPUSCULAR HGB CONC 27.4 g/dl (33.0-37.0); MEAN PLATELET VOLUME 11.4 fl (9.6-12.3); MONO # 0.3 10*3/uL (0.1-1.0); MONO % 5.6 % (3.0-9.0); NEUT # 3.5 10*3/uL (2.3-7.9); NEUT % 73.2 % (47.0-73.0); PLATELET COUNT AUTOMATED 206 10*3/uL (130-400); RED BLOOD COUNT 3.23 10*6/uL (4.50-5.90); RED CELL DISTRI WIDTH 14.1 % (0-14.5); WHITE BLOOD COUNT 4.8 10*3/uL (4.8-10.8)
[2020-12-02 08:00] VITALS: BP 100/68
[2020-12-02 12:00] VITALS: BP 147/62
[2020-12-02 16:00] VITALS: BP 150/58
[2020-12-02 20:00] VITALS: BP 150/53
[2020-12-03] VITALS: BP 154/53
[2020-12-03 06:53] LABS: BUN 13 mg/dl (7-24); CHLORIDE 113 mmol/L (98-107); CREATININE 0.64 mg/dL (0.70-1.30); SODIUM 154 mmol/L (136-145)
[2020-12-03 07:17] LABS: POTASSIUM 3.3 mmol/L (3.5-5.1)
[2020-12-03 08:00] VITALS: BP 163/52
[2020-12-03 12:00] VITALS: BP 152/60
[2020-12-03 16:00] VITALS: BP 146/126
[2020-12-03 20:05] VITALS: BP 127/44
[2020-12-04] VITALS: BP 123/41
[2020-12-04 04:00] VITALS: BP 122/66
[2020-12-04 06:52] LABS: BUN 13 mg/dl (7-24); CHLORIDE 110 mmol/L (98-107); CREATININE 0.71 mg/dL (0.70-1.30); POTASSIUM 3.2 mmol/L (3.5-5.1); SODIUM 152 mmol/L (136-145)
[2020-12-04 08:00] VITALS: BP 133/52
[2020-12-04 12:00] VITALS: BP 114/49
[2020-12-04 16:00] VITALS: BP 151/77
[2020-12-04 20:00] VITALS: BP 159/62
[2020-12-05] VITALS: BP 151/60
[2020-12-05 06:35] LABS: BASO % 0.7 % (0.0-1.0); EOS # 0.1 10*3/uL (0.0-0.4); EOS % 2.3 % (1.0-4.0); HEMATOCRIT 34.1 % (42.0-52.0); LYMPH % 22.1 % (27.0-41.0); MEAN CELL VOLUME 102.1 fl (80.0-94.0); MEAN CORPUSCULAR HGB 29.3 pg (27.0-31.0); MEAN CORPUSCULAR HGB CONC 28.7 g/dl (33.0-37.0); MEAN PLATELET VOLUME 11.8 fl (9.6-12.3); MONO # 0.3 10*3/uL (0.1-1.0); MONO % 5.8 % (3.0-9.0); NEUT % 68.9 % (47.0-73.0); PLATELET COUNT AUTOMATED 222 10*3/uL (130-400); RED BLOOD COUNT 3.34 10*6/uL (4.50-5.90); RED CELL DISTRI WIDTH 14.8 % (0-14.5); WHITE BLOOD COUNT 4.3 10*3/uL (4.8-10.8)
[2020-12-05 06:47] LABS: ALBUMIN 2.4 gm/dl (3.1-4.5); ALKALINE PHOSPHATASE 96 U/L (45-117); BUN 12 mg/dl (7-24); CHLORIDE 109 mmol/L (98-107); CREATININE 0.63 mg/dL (0.70-1.30); POTASSIUM 3.1 mmol/L (3.5-5.1); SGOT/AST 33 IU/L (3-35); SGPT/ALT 27 U/L (12-78); SODIUM 149 mmol/L (136-145); TOTAL PROTEIN 5.9 gm/dL (6.4-8.2)
[2020-12-05 08:00] VITALS: BP 122/67
[2020-12-05 12:00] VITALS: BP 114/50
[2020-12-05 16:00] VITALS: BP 120/56
[2020-12-05 20:00] VITALS: BP 124/56; BP 147/78
[2020-12-06] VITALS: BP 124/61
[2020-12-06 06:00] LABS: ALBUMIN 2.3 gm/dl (3.1-4.5); ALKALINE PHOSPHATASE 99 U/L (45-117); BUN 12 mg/dl (7-24); CHLORIDE 109 mmol/L (98-107); CREATININE 0.72 mg/dL (0.70-1.30); POTASSIUM 3.2 mmol/L (3.5-5.1); SGOT/AST 25 IU/L (3-35); SGPT/ALT 28 U/L (12-78); SODIUM 149 mmol/L (136-145); TOTAL PROTEIN 6.1 gm/dL (6.4-8.2)
[2020-12-06 06:46] LABS: BASO % 0.7 % (0.0-1.0); EOS # 0.1 10*3/uL (0.0-0.4); EOS % 2.2 % (1.0-4.0); HEMATOCRIT 36.1 % (42.0-52.0); LYMPH % 22.2 % (27.0-41.0); MEAN CORPUSCULAR HGB 29.8 pg (27.0-31.0); MEAN CORPUSCULAR HGB CONC 28.3 g/dl (33.0-37.0); MEAN PLATELET VOLUME 11.8 fl (9.6-12.3); MONO # 0.3 10*3/uL (0.1-1.0); MONO % 6.7 % (3.0-9.0); NEUT # 3.1 10*3/uL (2.3-7.9); PLATELET COUNT AUTOMATED 209 10*3/uL (130-400); RED BLOOD COUNT 3.42 10*6/uL (4.50-5.90); RED CELL DISTRI WIDTH 15.2 % (0-14.5); WHITE BLOOD COUNT 4.5 10*3/uL (4.8-10.8)
[2020-12-06 06:52] LABS: MEAN CELL VOLUME 105.6 fl (80.0-94.0)
[2020-12-06 08:00] VITALS: BP 162/83
[2020-12-06 12:00] VITALS: BP 155/77
[2020-12-06] MEDS ORDERED: HYDROXYZINE HCL25 MG PO (14:34)
[2020-12-06] MEDS ORDERED: PHOS-NAK PACKE1 EACH PO (14:34)
[2020-12-06] MEDS ORDERED: AKWA TEARS 15 M15 ML OPH (14:34)
[2020-12-06] MEDS ORDERED: LANTUS SOL100 UNIT/1 SC (14:34)
[2020-12-06] MEDS ORDERED: Humalog SQ (14:36)
[2020-12-06] MEDS ORDERED: LOPRESSOR25 MG PO (15:43)
[2020-12-06] MEDS ORDERED: K-TAB20 MEQ PO (15:44)
[2021-01-05 11:04] LABS: ACID FAST CULTURE Negative (.)
== END 2020-12-06 16:42 | DRG 870 ==
LOC: ED 13:30 → EDHOLD 15:19 → 5E 15:19 → ICCU 15:19 → 5E 11-27 15:18
PROVIDERS: Emergency Medicine; Internal Medicine; Internal Medicine Critical Care Medicine; Internal Medicine Nephrology; Registered Nurse; ADMIT Internal Medicine; ATTEND Internal Medicine
PROC: 5A1955Z Respiratory Ventilation, Greater than 96 Consecutive Hours (ICD-10-PCS; principal; 2020-11-18)
PROC: 0BH18EZ Insertion of Endotracheal Airway into Trachea, Via Natural or Artificial Opening Endoscopic (ICD-10-PCS; 2020-11-18)
PROC: 5A09357 Assistance with Respiratory Ventilation, Less than 24 Consecutive Hours, Continuous Positive Airway Pressure (ICD-10-PCS; 2020-11-18)
PROC: 03HY32Z Insertion of Monitoring Device into Upper Artery, Percutaneous Approach (ICD-10-PCS; 2020-11-18)
PROC: 02HV33Z Insertion of Infusion Device into Superior Vena Cava, Percutaneous Approach (ICD-10-PCS; 2020-11-18)
PROC: B548ZZA Ultrasonography of Superior Vena Cava, Guidance (ICD-10-PCS; 2020-11-18)
PROC: 0BC18ZZ Extirpation of Matter from Trachea, Via Natural or Artificial Opening Endoscopic (ICD-10-PCS; 2020-11-23)
PROC: 0BC98ZZ Extirpation of Matter from Lingula Bronchus, Via Natural or Artificial Opening Endoscopic (ICD-10-PCS; 2020-11-23)
PROC: 0BC48ZZ Extirpation of Matter from Right Upper Lobe Bronchus, Via Natural or Artificial Opening Endoscopic (ICD-10-PCS; 2020-11-23)
PROC: 0BC88ZZ Extirpation of Matter from Left Upper Lobe Bronchus, Via Natural or Artificial Opening Endoscopic (ICD-10-PCS; 2020-11-23)
PROC: 0BC58ZZ Extirpation of Matter from Right Middle Lobe Bronchus, Via Natural or Artificial Opening Endoscopic (ICD-10-PCS; 2020-11-23)
PROC: 0BC38ZZ Extirpation of Matter from Right Main Bronchus, Via Natural or Artificial Opening Endoscopic (ICD-10-PCS; 2020-11-23)
PROC: 0BC78ZZ Extirpation of Matter from Left Main Bronchus, Via Natural or Artificial Opening Endoscopic (ICD-10-PCS; 2020-11-23)
PROC: 0BC68ZZ Extirpation of Matter from Right Lower Lobe Bronchus, Via Natural or Artificial Opening Endoscopic (ICD-10-PCS; 2020-11-23)
PROC: 0BCB8ZZ Extirpation of Matter from Left Lower Lobe Bronchus, Via Natural or Artificial Opening Endoscopic (ICD-10-PCS; 2020-11-23)
PROC: 05HY33Z Insertion of Infusion Device into Upper Vein, Percutaneous Approach (ICD-10-PCS; 2020-11-23)
PROC: 5A09357 Assistance with Respiratory Ventilation, Less than 24 Consecutive Hours, Continuous Positive Airway Pressure (ICD-10-PCS; 2020-11-24)
PROC: 5A0935A Assistance with Respiratory Ventilation, Less than 24 Consecutive Hours, High Flow/Velocity Cannula (ICD-10-PCS; 2020-11-25)
PROC: 5A09357 Assistance with Respiratory Ventilation, Less than 24 Consecutive Hours, Continuous Positive Airway Pressure (ICD-10-PCS; 2020-11-26)
PROC: 5A0935A Assistance with Respiratory Ventilation, Less than 24 Consecutive Hours, High Flow/Velocity Cannula (ICD-10-PCS; 2020-11-27)
PROC: 5A09357 Assistance with Respiratory Ventilation, Less than 24 Consecutive Hours, Continuous Positive Airway Pressure (ICD-10-PCS; 2020-11-28)
PROC: 5A0935A Assistance with Respiratory Ventilation, Less than 24 Consecutive Hours, High Flow/Velocity Cannula (ICD-10-PCS; 2020-11-28)
PROC: 5A09357 Assistance with Respiratory Ventilation, Less than 24 Consecutive Hours, Continuous Positive Airway Pressure (ICD-10-PCS; 2020-12-01)
PROC: 5A09357 Assistance with Respiratory Ventilation, Less than 24 Consecutive Hours, Continuous Positive Airway Pressure (ICD-10-PCS; 2020-12-02)
PROC: 5A0935A Assistance with Respiratory Ventilation, Less than 24 Consecutive Hours, High Flow/Velocity Cannula (ICD-10-PCS; 2020-12-02)
PROC: 5A09357 Assistance with Respiratory Ventilation, Less than 24 Consecutive Hours, Continuous Positive Airway Pressure (ICD-10-PCS; 2020-12-04)
PROC: 5A0935A Assistance with Respiratory Ventilation, Less than 24 Consecutive Hours, High Flow/Velocity Cannula (ICD-10-PCS; 2020-12-05)
DX: A41.51 Sepsis due to Escherichia coli [E. coli] (principal); G93.41 Metabolic encephalopathy; R65.21 Severe sepsis with septic shock; N17.0 Acute kidney failure with tubular necrosis; J96.21 Acute and chronic respiratory failure with hypoxia; J96.22 Acute and chronic respiratory failure with hypercapnia; J18.9 Pneumonia, unspecified organism; I26.99 Other pulmonary embolism without acute cor pulmonale; Z68.41 Body mass index [BMI] 40.0-44.9, adult; N39.0 Urinary tract infection, site not specified; E87.0 Hyperosmolality and hypernatremia; E87.3 Alkalosis; Z20.822 Contact with and (suspected) exposure to COVID-19; I48.91 Unspecified atrial fibrillation; I50.9 Heart failure, unspecified; E78.5 Hyperlipidemia, unspecified; D72.819 Decreased white blood cell count, unspecified; E11.65 Type 2 diabetes mellitus with hyperglycemia; D47.3 Essential (hemorrhagic) thrombocythemia; I87.8 Other specified disorders of veins; B96.20 Unspecified Escherichia coli [E. coli] as the cause of diseases classified elsewhere; D53.9 Nutritional anemia, unspecified; E83.41 Hypermagnesemia; E87.6 Hypokalemia; E86.9 Volume depletion, unspecified; S91.109A Unspecified open wound of unspecified toe(s) without damage to nail, initial encounter; G47.33 Obstructive sleep apnea (adult) (pediatric); R74.01 Elevation of levels of liver transaminase levels; E83.39 Other disorders of phosphorus metabolism; E66.01 Morbid (severe) obesity due to excess calories; T17.990A Other foreign object in respiratory tract, part unspecified in causing asphyxiation, initial encounter; X58.XXXA Exposure to other specified factors, initial encounter; Y93.89 Activity, other specified; Y92.89 Other specified places as the place of occurrence of the external cause; Y99.8 Other external cause status; Z88.6 Allergy status to analgesic agent; Z89.432 Acquired absence of left foot; Z89.422 Acquired absence of other left toe(s); I11.0 Hypertensive heart disease with heart failure

== ENCOUNTER 2020-12-07 21:16 | Emergency (ER) | payer OTHER, MEDICARE ==
[~2020-12-07] VITALS: Wt 138.8 kg
[~2020-12-07 21:16] MED LIST changes: +AKWA TEARS 15 M15 ML OPH; +ALBUTEROL0.63 MG/3 NEB; +HYDROXYZINE HCL25 MG PO; +Humalog SQ; +K-TAB20 MEQ PO; +LANTUS SOL100 UNIT/1 SC; +LOPRESSOR25 MG PO; +PHOS-NAK PACKE1 EACH PO; +VITAMIN D350 MC2 PO
[2020-12-07 21:40] LABS: BASO % 0.4 % (0.0-1.0); EOS # 0.1 10*3/uL (0.0-0.4); EOS % 1.4 % (1.0-4.0); HEMATOCRIT 36.1 % (42.0-52.0); LYMPH # 1.5 10*3/uL (1.3-4.4); LYMPH % 21.3 % (27.0-41.0); MEAN CORPUSCULAR HGB 29.4 pg (27.0-31.0); MEAN CORPUSCULAR HGB CONC 29.1 g/dl (33.0-37.0); MEAN PLATELET VOLUME 10.9 fl (9.6-12.3); MONO # 0.5 10*3/uL (0.1-1.0); MONO % 6.4 % (3.0-9.0); NEUT # 5.1 10*3/uL (2.3-7.9); NEUT % 70.2 % (47.0-73.0); PLATELET COUNT AUTOMATED 262 10*3/uL (130-400); RED BLOOD COUNT 3.57 10*6/uL (4.50-5.90); RED CELL DISTRI WIDTH 15.6 % (0-14.5); WHITE BLOOD COUNT 7.2 10*3/uL (4.8-10.8)
[2020-12-07 21:41] LABS: MEAN CELL VOLUME 101.1 fl (80.0-94.0)
[2020-12-07 21:52] LABS: ALBUMIN 2.5 gm/dl (3.1-4.5); ALKALINE PHOSPHATASE 114 U/L (45-117); BUN 14 mg/dl (7-24); CHLORIDE 105 mmol/L (98-107); SGOT/AST 23 IU/L (3-35); SGPT/ALT 26 U/L (12-78); SODIUM 146 mmol/L (136-145); TOTAL PROTEIN 6.4 gm/dL (6.4-8.2)
[2020-12-07 23:30] LABS: BILIRUBIN Negative (Negative); BLOOD 3+ (Negative); CLARITY Clear (Clear); COLOR Yellow (Yellow); GLUCOSE 3+ (Negative); KETONE 1+ (Negative); LEUKO ESTERASE Negative (Negative); NITRITE Negative (Negative); SPECIFIC GRAVITY >= 1.030 (1.001-1.030)
[2020-12-07 23:37] LABS: URINE AMPHETAMINES < 1000 (1000ng/ml); URINE BARBITURATES < 200 (200ng/ml); URINE BENZODIAZEPINES < 200 (200ng/ml); URINE CANNABINOIDS (THC) < 50 (50ng/ml); URINE COCAINE < 300 (300ng/ml); URINE METHADONE < 300 (300ng/ml); URINE OPIATES < 300 (300ng/ml)
[2020-12-07 23:38] LABS: URINE PHENCYCLIDINE < 25 (25ng/ml)
[2020-12-07 23:44] LABS: BACTERIA TRACE; RBC 51-100 rbc/hpf (0-2)
[2020-12-08 01:24] VITALS: BP 140/52
== END 2020-12-08 06:30 ==
LOC: ED 21:16
PROVIDERS: Internal Medicine
DX: E87.8 Other disorders of electrolyte and fluid balance, not elsewhere classified (principal); D53.9 Nutritional anemia, unspecified; E11.65 Type 2 diabetes mellitus with hyperglycemia; F29 Unspecified psychosis not due to a substance or known physiological condition; F32.9 Major depressive disorder, single episode, unspecified; I11.0 Hypertensive heart disease with heart failure; I50.9 Heart failure, unspecified; J44.9 Chronic obstructive pulmonary disease, unspecified; E78.5 Hyperlipidemia, unspecified; Z86.16 Personal history of COVID-19; Z88.8 Allergy status to other drugs, medicaments and biological substances; Z79.899 Other long term (current) drug therapy; Z79.4 Long term (current) use of insulin

== ENCOUNTER → 2021-03-20 | Outpatient (CLI) | payer OTHER, MEDICARE ==
[2021-03-20 15:41] LABS: BASO # 0.1 10*3/uL (0.0-0.1); BASO % 0.5 % (0.0-1.0); EOS # 0.3 10*3/uL (0.0-0.4); EOS % 2.7 % (1.0-4.0); LYMPH # 1.6 10*3/uL (1.3-4.4); LYMPH % 15.8 % (27.0-41.0); MEAN CELL VOLUME 97.4 fl (80.0-94.0); MEAN CORPUSCULAR HGB 30.4 pg (27.0-31.0); MEAN CORPUSCULAR HGB CONC 31.2 g/dl (33.0-37.0); MEAN PLATELET VOLUME 10.1 fl (9.6-12.3); MONO # 0.6 10*3/uL (0.1-1.0); MONO % 5.7 % (3.0-9.0); NEUT # 7.7 10*3/uL (2.3-7.9); NEUT % 74.9 % (47.0-73.0); PLATELET COUNT AUTOMATED 298 10*3/uL (130-400); RED BLOOD COUNT 3.49 10*6/uL (4.50-5.90); RED CELL DISTRI WIDTH 13.5 % (0-14.5); WHITE BLOOD COUNT 10.2 10*3/uL (4.8-10.8)
[2021-03-20 15:42] LABS: BILIRUBIN Negative (Negative); BLOOD Negative (Negative); CLARITY Clear (Clear); COLOR Yellow (Yellow); GLUCOSE Negative (Negative); KETONE Negative (Negative); LEUKO ESTERASE Trace (Negative); NITRITE Negative (Negative); PH 7.5 (4.5-8.0); SPECIFIC GRAVITY 1.015 (1.001-1.030); UROBILINOGEN 0.2 E.U./dl (0.0-1.0)
[2021-03-20 16:13] LABS: ALBUMIN 3.8 gm/dl (3.1-4.5); BUN 16 mg/dl (7-24); CHLORIDE 102 mmol/L (98-107); CHOLESTEROL 106 mg/dL (<200); CREATININE 0.67 mg/dL (0.70-1.30); IRON 60 ug/dL (65-175); POTASSIUM 4.4 mmol/L (3.5-5.1); SGPT/ALT 16 U/L (12-78); SODIUM 137 mmol/L (136-145); TRIGLYCERIDES 158 mg/dl (<150)
[2021-03-20 16:14] LABS: FINE GRANULAR CAST 0-2
[2021-03-20 16:21] LABS: ALKALINE PHOSPHATASE 140 U/L (45-117); LDL CHOLESTEROL 34 mg/dL (9-159); SGOT/AST 23 IU/L (3-35); TOTAL IRON BINDING CAPACITY 543 ug/dl (250-450); TOTAL PROTEIN 8.2 gm/dL (6.4-8.2)
[2021-03-20 16:24] LABS: GAMMA GLUTAMYL TRANSPEPTIDASE < 3 U/L (15-85)
[2021-03-20 18:24] LABS: FERRITIN 16.8 ng/mL (22.0-322.0); VITAMIN D, 25-HYDROXY 24.1 ng/mL (30-100)
== END | disposition home or self-care (01) ==
LOC: LAB 14:55
PROVIDERS: ATTEND Family Medicine
DX: E10.9 Type 1 diabetes mellitus without complications (principal); E55.9 Vitamin D deficiency, unspecified; R79.89 Other specified abnormal findings of blood chemistry; R53.83 Other fatigue

== ENCOUNTER 2021-10-08 16:04 | Inpatient (IN) | payer OTHER, MEDICARE ==
[~2021-10-08] VITALS: Ht 180.3 cm; Wt 143.4 kg
[2021-10-08 16:10] VITALS: BP 131/73
[2021-10-08 17:30] LABS: BASO % 0.3 % (0.0-1.0); EOS # 0.4 10*3/uL (0.0-0.4); HEMATOCRIT 36.2 % (42.0-52.0); LYMPH # 1.6 10*3/uL (1.3-4.4); LYMPH % 11.7 % (27.0-41.0); MEAN CELL VOLUME 97.6 fl (80.0-94.0); MEAN CORPUSCULAR HGB 30.2 pg (27.0-31.0); MEAN CORPUSCULAR HGB CONC 30.9 g/dl (33.0-37.0); MEAN PLATELET VOLUME 9.3 fl (9.6-12.3); NEUT # 10.7 10*3/uL (2.3-7.9); NEUT % 77.4 % (47.0-73.0); PLATELET COUNT AUTOMATED 414 10*3/uL (130-400); RED BLOOD COUNT 3.71 10*6/uL (4.50-5.90); RED CELL DISTRI WIDTH 14.7 % (0-14.5); WHITE BLOOD COUNT 13.8 10*3/uL (4.8-10.8)
[2021-10-08 17:30] LABS: BILIRUBIN Negative (Negative); BLOOD Negative (Negative); CLARITY Clear (Clear); COLOR Yellow (Yellow); GLUCOSE Negative (Negative); KETONE Negative (Negative); LEUKO ESTERASE Negative (Negative); NITRITE Negative (Negative); PH 6.5 (4.5-8.0); SPECIFIC GRAVITY 1.025 (1.001-1.030); UROBILINOGEN 0.2 E.U./dl (0.0-1.0)
[2021-10-08 17:42] LABS: MUCOUS TRACE; RBC 0-2 rbc/hpf (0-2); WBC 0-2 wbc/hpf (0-5)
[2021-10-08 17:44] LABS: ACT PARTIAL THROMBO TIME 27.9 SECONDS (20.0-32.1)
[2021-10-08 17:47] LABS: ALBUMIN 2.9 gm/dl (3.1-4.5); ALKALINE PHOSPHATASE 103 U/L (45-117); BUN 29 mg/dl (7-24); CHLORIDE 101 mmol/L (98-107); LIPASE 43 U/L (73-393); POTASSIUM 4.1 mmol/L (3.5-5.1); SGOT/AST 50 IU/L (3-35); SGPT/ALT 24 U/L (12-78); SODIUM 139 mmol/L (136-145)
[2021-10-08] MEDS ORDERED: FUROSEMIDE20 M1 PO (19:13)
[2021-10-08] MEDS ORDERED: METFORMIN HYDR500 MG PO (19:14)
[2021-10-08] MEDS ORDERED: NOVOLIN 70100 UNIT/1 SQ (19:19)
[2021-10-08 19:20] LABS: ABG BASE EXCESS 5.6 mmol/L (-2.0-2.0); ARTERIAL BLOOD GAS PH 7.302 (7.35-7.45); ARTERIAL BLOOD GAS PO2 94.2 (80-90)
[2021-10-08 22:40] VITALS: BP 114/33
[2021-10-08 23:12] LABS: ABG BASE EXCESS 5.2 mmol/L (-2.0-2.0); ARTERIAL BLOOD GAS PH 7.315 (7.35-7.45); ARTERIAL BLOOD GAS PO2 87.5 (80-90)
[2021-10-08 23:40] VITALS: BP 129/37
[2021-10-09 02:19] LABS: ABG BASE EXCESS 5.4 mmol/L (-2.0-2.0); ARTERIAL BLOOD GAS PH 7.338 (7.35-7.45); ARTERIAL BLOOD GAS PO2 89.6 (80-90)
[2021-10-09 04:00] VITALS: BP 111/42
[2021-10-09 06:02] LABS: ALBUMIN 2.7 gm/dl (3.1-4.5); BUN 24 mg/dl (7-24); CHLORIDE 101 mmol/L (98-107); CREATININE 0.65 mg/dL (0.70-1.30); POTASSIUM 4.2 mmol/L (3.5-5.1); SGOT/AST 48 IU/L (3-35); SGPT/ALT 23 U/L (12-78); SODIUM 140 mmol/L (136-145); TOTAL PROTEIN 6.5 gm/dL (6.4-8.2)
[2021-10-09 06:03] LABS: ALKALINE PHOSPHATASE 100 U/L (45-117)
[2021-10-09 06:46] LABS: HEMATOCRIT 36.1 % (42.0-52.0); MEAN CORPUSCULAR HGB 30.5 pg (27.0-31.0); MEAN CORPUSCULAR HGB CONC 29.9 g/dl (33.0-37.0); PLATELET COUNT AUTOMATED 324 10*3/uL (130-400); RED BLOOD COUNT 3.54 10*6/uL (4.50-5.90); RED CELL DISTRI WIDTH 14.9 % (0-14.5); WHITE BLOOD COUNT 10.4 10*3/uL (4.8-10.8)
[2021-10-09 07:23] LABS: ABG BASE EXCESS 5.5 mmol/L (-2.0-2.0); ARTERIAL BLOOD GAS PH 7.401 (7.35-7.45); ARTERIAL BLOOD GAS PO2 97.7 (80-90)
[2021-10-09 07:42] LABS: PLATELET SUFFICIENCY NORMAL (NORMAL); TOTAL CELLS COUNTED 100 #CELLS
[2021-10-09 08:00] VITALS: BP 154/59
[2021-10-09 12:00] VITALS: BP 122/29
[2021-10-09 16:00] VITALS: BP 119/41
[2021-10-09 20:00] VITALS: BP 111/41
[2021-10-10] VITALS: BP 142/62
[2021-10-10 07:42] LABS: BASO % 0.1 % (0.0-1.0); EOS % 0.4 % (1.0-4.0); HEMATOCRIT 34.3 % (42.0-52.0); LYMPH # 0.6 10*3/uL (1.3-4.4); LYMPH % 6.8 % (27.0-41.0); MEAN CELL VOLUME 100.3 fl (80.0-94.0); MEAN CORPUSCULAR HGB 30.4 pg (27.0-31.0); MEAN CORPUSCULAR HGB CONC 30.3 g/dl (33.0-37.0); MEAN PLATELET VOLUME 9.4 fl (9.6-12.3); MONO # 0.3 10*3/uL (0.1-1.0); MONO % 3.2 % (3.0-9.0); NEUT # 7.6 10*3/uL (2.3-7.9); PLATELET COUNT AUTOMATED 285 10*3/uL (130-400); RED BLOOD COUNT 3.42 10*6/uL (4.50-5.90); RED CELL DISTRI WIDTH 14.9 % (0-14.5); WHITE BLOOD COUNT 8.5 10*3/uL (4.8-10.8)
[2021-10-10 07:52] LABS: BUN 18 mg/dl (7-24); CHLORIDE 97 mmol/L (98-107); CREATININE 0.85 mg/dL (0.70-1.30); POTASSIUM 4.6 mmol/L (3.5-5.1); SODIUM 135 mmol/L (136-145)
[2021-10-10 08:00] VITALS: BP 125/53
[2021-10-10 12:00] VITALS: BP 137/53
[2021-10-10 16:00] VITALS: BP 136/53
[2021-10-10 20:00] VITALS: BP 120/58
[2021-10-11] VITALS: BP 99/67
[2021-10-11 06:40] LABS: EOS % 0.4 % (1.0-4.0); HEMATOCRIT 35.4 % (42.0-52.0); LYMPH # 0.6 10*3/uL (1.3-4.4); MEAN CELL VOLUME 98.3 fl (80.0-94.0); MEAN CORPUSCULAR HGB CONC 30.5 g/dl (33.0-37.0); MEAN PLATELET VOLUME 9.6 fl (9.6-12.3); MONO # 0.3 10*3/uL (0.1-1.0); MONO % 3.2 % (3.0-9.0); PLATELET COUNT AUTOMATED 310 10*3/uL (130-400); RED CELL DISTRI WIDTH 14.5 % (0-14.5); WHITE BLOOD COUNT 7.8 10*3/uL (4.8-10.8)
[2021-10-11 06:53] LABS: BUN 21 mg/dl (7-24); CHLORIDE 96 mmol/L (98-107); CREATININE 0.84 mg/dL (0.70-1.30); SODIUM 135 mmol/L (136-145)
[2021-10-11 08:00] VITALS: BP 122/44
[2021-10-11 12:00] VITALS: BP 118/36
[2021-10-11 16:00] VITALS: BP 102/46
[2021-10-11 20:00] VITALS: BP 142/64
[2021-10-12] VITALS: BP 175/83
[2021-10-12 06:38] LABS: BASO % 0.1 % (0.0-1.0); EOS % 0.1 % (1.0-4.0); HEMATOCRIT 37.3 % (42.0-52.0); LYMPH % 11.6 % (27.0-41.0); MEAN CELL VOLUME 99.7 fl (80.0-94.0); MEAN CORPUSCULAR HGB 30.5 pg (27.0-31.0); MEAN CORPUSCULAR HGB CONC 30.6 g/dl (33.0-37.0); MEAN PLATELET VOLUME 9.6 fl (9.6-12.3); MONO # 0.4 10*3/uL (0.1-1.0); NEUT # 7.3 10*3/uL (2.3-7.9); NEUT % 82.7 % (47.0-73.0); PLATELET COUNT AUTOMATED 280 10*3/uL (130-400); RED BLOOD COUNT 3.74 10*6/uL (4.50-5.90); RED CELL DISTRI WIDTH 14.1 % (0-14.5); WHITE BLOOD COUNT 8.9 10*3/uL (4.8-10.8)
[2021-10-12 06:52] LABS: BUN 24 mg/dl (7-24); CHLORIDE 96 mmol/L (98-107); CREATININE 0.86 mg/dL (0.70-1.30); POTASSIUM 4.6 mmol/L (3.5-5.1); SODIUM 134 mmol/L (136-145)
[2021-10-12 09:00] VITALS: BP 134/72
[2021-10-12 12:00] VITALS: BP 112/73
[2021-10-12 16:00] VITALS: BP 134/65
[2021-10-12 17:00] VITALS: BP 134/65
[2021-10-12 20:00] VITALS: BP 115/49
[2021-10-13] VITALS: BP 124/53
[2021-10-13 06:21] LABS: BASO % 0.1 % (0.0-1.0); LYMPH % 11.1 % (27.0-41.0); MEAN CELL VOLUME 98.2 fl (80.0-94.0); MEAN CORPUSCULAR HGB CONC 31.6 g/dl (33.0-37.0); MEAN PLATELET VOLUME 10.1 fl (9.6-12.3); MONO # 0.4 10*3/uL (0.1-1.0); MONO % 4.3 % (3.0-9.0); NEUT # 7.8 10*3/uL (2.3-7.9); NEUT % 83.9 % (47.0-73.0); PLATELET COUNT AUTOMATED 289 10*3/uL (130-400); RED BLOOD COUNT 3.87 10*6/uL (4.50-5.90); RED CELL DISTRI WIDTH 14.2 % (0-14.5); WHITE BLOOD COUNT 9.3 10*3/uL (4.8-10.8)
[2021-10-13 06:28] LABS: CHLORIDE 90 mmol/L (98-107); CREATININE 1.03 mg/dL (0.70-1.30); POTASSIUM 4.8 mmol/L (3.5-5.1); SODIUM 132 mmol/L (136-145)
[2021-10-13 06:30] LABS: BUN 34 mg/dl (7-24)
[2021-10-13 08:00] VITALS: BP 136/96
[2021-10-13 13:00] VITALS: BP 119/64
[2021-10-13 16:00] VITALS: BP 133/62
[2021-10-13 20:00] VITALS: BP 117/50
[2021-10-14] VITALS: BP 112/46
[2021-10-14 07:02] LABS: BASO % 0.1 % (0.0-1.0); EOS % 0.4 % (1.0-4.0); LYMPH # 1.9 10*3/uL (1.3-4.4); LYMPH % 19.6 % (27.0-41.0); MEAN CELL VOLUME 97.9 fl (80.0-94.0); MEAN CORPUSCULAR HGB 30.4 pg (27.0-31.0); MEAN CORPUSCULAR HGB CONC 31.1 g/dl (33.0-37.0); MONO # 0.6 10*3/uL (0.1-1.0); MONO % 6.5 % (3.0-9.0); PLATELET COUNT AUTOMATED 239 10*3/uL (130-400); RED BLOOD COUNT 3.88 10*6/uL (4.50-5.90); RED CELL DISTRI WIDTH 14.2 % (0-14.5); WHITE BLOOD COUNT 9.6 10*3/uL (4.8-10.8)
[2021-10-14 07:17] LABS: BUN 34 mg/dl (7-24); CHLORIDE 93 mmol/L (98-107); CREATININE 1.03 mg/dL (0.70-1.30); POTASSIUM 3.9 mmol/L (3.5-5.1); SODIUM 134 mmol/L (136-145)
[2021-10-14 08:00] VITALS: BP 99/64
[2021-10-14 11:05] VITALS: BP 120/50
[2021-10-14 12:00] VITALS: BP 100/56
[2021-10-14 16:00] VITALS: BP 110/50
[2021-10-14 20:00] VITALS: BP 121/52
[2021-10-15] VITALS: BP 115/49
[2021-10-15 08:00] VITALS: BP 121/55
[2021-10-15 08:51] VITALS: BP 120/60
[2021-10-15] MEDS ORDERED: VIBRAMYCIN100 MG PO (09:30)
[2021-10-15] MEDS ORDERED: PREDNISONE20 M1 PO (09:39)
[2021-10-15 12:00] VITALS: BP 114/44
== END 2021-10-15 16:23 | disposition home or self-care (01) | DRG 291 ==
LOC: ED 16:04 → ICCU 20:18 → EDHOLD 20:18 → 5E 20:18 → EDHOLD 21:07 → ICCU 22:17 → 5E 10-09 13:16
PROVIDERS: Hospitalist; Internal Medicine; Physician Assistant; Student in an Organized Health Care Education/Training Program; ADMIT Internal Medicine; ATTEND Internal Medicine
PROC: 5A09357 Assistance with Respiratory Ventilation, Less than 24 Consecutive Hours, Continuous Positive Airway Pressure (ICD-10-PCS; principal; 2021-10-08)
PROC: 5A09357 Assistance with Respiratory Ventilation, Less than 24 Consecutive Hours, Continuous Positive Airway Pressure (ICD-10-PCS; 2021-10-10)
PROC: 5A09357 Assistance with Respiratory Ventilation, Less than 24 Consecutive Hours, Continuous Positive Airway Pressure (ICD-10-PCS; 2021-10-15)
DX: I11.0 Hypertensive heart disease with heart failure (principal); I50.23 Acute on chronic systolic (congestive) heart failure; G93.41 Metabolic encephalopathy; J96.22 Acute and chronic respiratory failure with hypercapnia; E44.0 Moderate protein-calorie malnutrition; Z68.41 Body mass index [BMI] 40.0-44.9, adult; L03.119 Cellulitis of unspecified part of limb; Z20.822 Contact with and (suspected) exposure to COVID-19; D50.9 Iron deficiency anemia, unspecified; E83.41 Hypermagnesemia; E78.2 Mixed hyperlipidemia; G47.33 Obstructive sleep apnea (adult) (pediatric); D75.839 Thrombocytosis, unspecified; E11.628 Type 2 diabetes mellitus with other skin complications; J44.9 Chronic obstructive pulmonary disease, unspecified; I87.2 Venous insufficiency (chronic) (peripheral); I48.0 Paroxysmal atrial fibrillation; E66.01 Morbid (severe) obesity due to excess calories; Z88.5 Allergy status to narcotic agent; Z79.51 Long term (current) use of inhaled steroids; Z79.899 Other long term (current) drug therapy; Z79.4 Long term (current) use of insulin

== ENCOUNTER 2021-11-09 17:04 | Emergency (ER) | payer OTHER, MEDICARE ==
[~2021-11-09] VITALS: Wt 136.1 kg
[~2021-11-09 17:04] MED LIST changes: +FUROSEMIDE20 M1 PO; +METFORMIN HYDR500 MG PO; +PREDNISONE20 M1 PO; +VIBRAMYCIN100 MG PO
[2021-11-09 17:31] VITALS: BP 00/00
== END 2021-11-09 17:07 ==
LOC: ED 17:04
DX: I46.9 Cardiac arrest, cause unspecified (principal); I48.91 Unspecified atrial fibrillation; J44.9 Chronic obstructive pulmonary disease, unspecified; E78.5 Hyperlipidemia, unspecified; I11.0 Hypertensive heart disease with heart failure; I50.9 Heart failure, unspecified; E66.9 Obesity, unspecified; M86.9 Osteomyelitis, unspecified; Z88.8 Allergy status to other drugs, medicaments and biological substances; Z79.899 Other long term (current) drug therapy; Z87.891 Personal history of nicotine dependence